=== PATIENT | male | born 1955 | race Caucasian/White ===

== ENCOUNTER 2018-11-29 12:23 | Outpatient (REF) | payer MEDICARE, SELFPAY ==
[2018-11-29 19:29] LABS: ALT 29 U/L (12-78); AST 24 U/L (15-37); Albumin 3.7 g/dL (3.4-5.0); Alkaline Phosphatase 110 U/L (46-116); Anion Gap 10.1 mmol/L (3-11); BUN 12 mg/dL (7-18); Bilirubin, Total 0.5 mg/dL (0.2-1.0); CO2 27.9 mmol/L (21.0-32.0); CREATININE 0.77 mg/dL (0.70-1.30); Calcium 9.2 mg/dL (8.5-10.1); Calculated LDL 89 mg/dL; Chloride 103 mmol/L (98-107); Cholesterol 152 mg/dL (50-200); Glucose 96 mg/dL (70-100); HDL Cholesterol 39 mg/dL (40-60); Potassium 4.6 mmol/L (3.5-5.1); Sodium 141 mmol/L (136-145); Total Protein 7.2 g/dL (6.4-8.2); Triglyceride 122 mg/dL (30-150)
== END 2018-11-29 12:43 ==
LOC: NCHCN 12:23
PROVIDERS: PCP Nurse Practitioner; Visit Provider Nurse Practitioner
DX: I10 Essential (primary) hypertension (principal); E78.5 Hyperlipidemia, unspecified
CPT/HCPCS: 80053; 80061; 83721

== ENCOUNTER 2019-05-31 11:16 | Outpatient (REF) | payer MEDICARE, SELFPAY ==
[2019-05-31 19:07] LABS: ALT 30 U/L (16-63); AST 23 U/L (15-37); Alkaline Phosphatase 115 U/L (46-116); Anion Gap 8.2 mmol/L (3-11); BUN 12 mg/dL (7-18); Bilirubin, Total 0.3 mg/dL (0.2-1.0); CO2 29.8 mmol/L (21.0-32.0); CREATININE 0.87 mg/dL (0.70-1.30); Chloride 103 mmol/L (98-107); Glucose 113 mg/dL (74-106); Potassium 4.8 mmol/L (3.5-5.1); Sodium 141 mmol/L (136-145); Total Protein 7.9 g/dL (6.4-8.2)
== END 2019-05-31 11:36 ==
LOC: NCHCN 11:16
PROVIDERS: PCP Nurse Practitioner; Visit Provider Nurse Practitioner
DX: I10 Essential (primary) hypertension (principal)
CPT/HCPCS: 80053

== ENCOUNTER 2020-06-06 19:14 | Outpatient (REF) | payer MEDICARE, SELFPAY ==
[2020-06-06 19:39] LABS: ALT 38 U/L (16-63); AST 24 U/L (15-37); Albumin 3.8 g/dL (3.4-5.0); Alkaline Phosphatase 108 U/L (46-116); Anion Gap 11.4 mmol/L (3-11); BUN 15 mg/dL (7-18); Bilirubin, Total 0.4 mg/dL (0.2-1.0); CO2 28.6 mmol/L (21.0-32.0); Calcium 9.8 mg/dL (8.5-10.1); Calculated LDL 100 mg/dL (<100); Chloride 101 mmol/L (98-107); Cholesterol 172 mg/dL (<200); Glucose 113 mg/dL (74-106); HDL Cholesterol 49 mg/dL (40-60); Potassium 4.3 mmol/L (3.5-5.1); Sodium 141 mmol/L (136-145); Total Protein 7.8 g/dL (6.4-8.2); Triglyceride 118 mg/dL (<150)
== END 2020-06-06 19:15 | disposition home or self-care (01) ==
LOC: NCHCN 19:14
PROVIDERS: PCP Nurse Practitioner; Visit Provider Nurse Practitioner
DX: I10 Essential (primary) hypertension (principal); E55.9 Vitamin D deficiency, unspecified; E78.5 Hyperlipidemia, unspecified
CPT/HCPCS: 80053; 80061; 82306; 84443

== ENCOUNTER 2020-10-08 17:31 | Outpatient (REF) | payer MEDICARE, SELFPAY ==
[2020-10-08 18:47] LABS: Abs Immature Grans 0.04 10^3/uL (0.0-0.06); Absolute Basophil Count 0.03 10^3/uL (0.0-0.2); Absolute Eosinophil Count 0.32 10^3/uL (0.0-0.7); Absolute Lymphocyte Count 1.25 10^3/uL (1.2-3.4); Absolute Monocyte Count 1.03 10^3/uL (0.1-0.8); Absolute Neutrophil Count 8.07 10^3/uL (1.2-6.7); Basophils % 0.3; HCT 48.3 % (40.0-50.0); HGB 15.4 g/dL (13.5-17.5); Immature Grans % 0.4; Lymphocytes % 11.6; MCH 29.6 pg (27.0-33.0); MCHC 31.9 % (32.0-36.0); MCV 92.9 fL (80-95); MPV 10.9 fL (8.0-11.0); Monocytes % 9.6; Neutrophils % 75.1; Nucleated RBC 0 %; Platelet Count 244 10^3/uL (130-400); RDW 13.8 % (11.8-14.1); RDW-SD 47.1 fL; WBC 10.74 10^3/uL (4.4-10.8)
[2020-10-08 18:53] LABS: ESR 49 mm/hr (0-20)
== END 2020-10-08 17:32 | disposition home or self-care (01) ==
LOC: NCHCN 17:31
PROVIDERS: PCP Nurse Practitioner; Visit Provider Nurse Practitioner
DX: R21 Rash and other nonspecific skin eruption (principal)
CPT/HCPCS: 85652; 85025

== ENCOUNTER 2021-07-15 12:22 | Outpatient (REF) | payer MEDICARE, SELFPAY ==
[2021-07-15 18:36] LABS: HCT 47.9 % (40.0-50.0); HGB 15.1 g/dL (13.5-17.5); MCH 29.1 pg (27.0-33.0); MCHC 31.5 % (32.0-36.0); MCV 92.3 fL (80-95); MPV 10.3 fL (8.0-11.0); Platelet Count 270 10^3/uL (130-400); RBC 5.19 10^6/uL (4.36-5.78); RDW 13.8 % (11.8-14.1); RDW-SD 46.5 fL; WBC 8.92 10^3/uL (4.4-10.8)
[2021-07-15 18:44] LABS: ALT 21 U/L (16-63); AST 20 U/L (15-37); Albumin 3.5 g/dL (3.4-5.0); Alkaline Phosphatase 103 U/L (46-116); Anion Gap 7.3 mmol/L (3-11); BUN 19 mg/dL (7-18); Bilirubin, Total 0.3 mg/dL (0.2-1.0); CO2 28.7 mmol/L (21.0-32.0); CREATININE 0.9 mg/dL (0.70-1.30); Chloride 104 mmol/L (98-107); Glucose 94 mg/dL (74-106); Potassium 4.7 mmol/L (3.5-5.1); Sodium 140 mmol/L (136-145); Total Protein 7.4 g/dL (6.4-8.2)
== END 2021-07-15 12:23 | disposition home or self-care (01) ==
LOC: NCHCN 12:22
PROVIDERS: PCP Nurse Practitioner; Visit Provider Nurse Practitioner Family
DX: R73.03 Prediabetes (principal); I10 Essential (primary) hypertension; I73.9 Peripheral vascular disease, unspecified; N40.0 Benign prostatic hyperplasia without lower urinary tract symptoms
CPT/HCPCS: 80053; 85027; 83036

== ENCOUNTER 2022-07-21 13:35 | Outpatient (REF) | payer MEDICARE, SELFPAY ==
[2022-07-21 15:29] LABS: Abs Immature Grans 0.06 10^3/uL (0.0-0.06); Absolute Basophil Count 0.05 10^3/uL (0.0-0.2); Absolute Eosinophil Count 0.25 10^3/uL (0.0-0.7); Absolute Lymphocyte Count 0.99 10^3/uL (1.2-3.4); Absolute Monocyte Count 0.74 10^3/uL (0.1-0.8); Absolute Neutrophil Count 7.61 10^3/uL (1.2-6.7); Basophils % 0.5; Eosinophils % 2.6; HCT 49.5 % (40.0-50.0); HGB 16.1 g/dL (13.5-17.5); Immature Grans % 0.6; Lymphocytes % 10.2; MCH 30.2 pg (27.0-33.0); MCHC 32.5 % (32.0-36.0); MCV 93 fL (80-95); MPV 10.9 fL (8.0-11.0); Monocytes % 7.6; Neutrophils % 78.5; Platelet Count 245 10^3/uL (130-400); RBC 5.33 10^6/uL (4.36-5.78); RDW 13.8 % (11.8-14.1); RDW-SD 46.9 fL
[2022-07-21 15:51] LABS: ALT 26 U/L (16-63); AST 22 U/L (15-37); Albumin 3.4 g/dL (3.4-5.0); Alkaline Phosphatase 105 U/L (46-116); Anion Gap 7.7 mmol/L (3-11); BUN 18 mg/dL (7-18); CO2 29.3 mmol/L (21.0-32.0); CREATININE 0.9 mg/dL (0.70-1.30); Calcium 9.4 mg/dL (8.5-10.1); Calculated LDL 72 mg/dL (<100); Chloride 101 mmol/L (98-107); Cholesterol 132 mg/dL (<200); Estimated GFR 93.61 (mL/min/1.73m2); Glucose 114 mg/dL (74-106); HDL Cholesterol 50 mg/dL (40-60); Potassium 4.9 mmol/L (3.5-5.1); Sodium 138 mmol/L (136-145); Total Protein 8.3 g/dL (6.4-8.2); Triglyceride 53 mg/dL (<150)
[2022-07-21 16:04] LABS: Hemoglobin A1C 6.1 % (<5.7)
[2022-07-21 18:56] LABS: Bilirubin, Total 0.3 mg/dL (0.2-1.0)
[2022-07-21 22:26] LABS: PSA, Screening 1.6 ng/mL (<=4.5)
== END 2022-07-21 13:36 | disposition home or self-care (01) ==
LOC: NCHCN 13:35
PROVIDERS: PCP Nurse Practitioner Family; Visit Provider Nurse Practitioner Family
DX: I10 Essential (primary) hypertension (principal); R73.03 Prediabetes; R60.0 Localized edema; E78.5 Hyperlipidemia, unspecified; Z12.5 Encounter for screening for malignant neoplasm of prostate; G47.33 Obstructive sleep apnea (adult) (pediatric); N40.0 Benign prostatic hyperplasia without lower urinary tract symptoms
CPT/HCPCS: 80053; 80061; 84153; 83036; 85025

== ENCOUNTER 2022-08-18 19:06 | Outpatient (REF) | payer MEDICARE, SELFPAY ==
[2022-08-18 19:26] LABS: Abs Immature Grans 0.04 10^3/uL (0.0-0.06); Absolute Basophil Count 0.04 10^3/uL (0.0-0.2); Absolute Eosinophil Count 0.37 10^3/uL (0.0-0.7); Absolute Lymphocyte Count 1.14 10^3/uL (1.2-3.4); Absolute Monocyte Count 0.67 10^3/uL (0.1-0.8); Absolute Neutrophil Count 6.79 10^3/uL (1.2-6.7); Basophils % 0.4; Eosinophils % 4.1; HCT 49.2 % (40.0-50.0); HGB 15.5 g/dL (13.5-17.5); Immature Grans % 0.4; Lymphocytes % 12.6; MCH 30.3 pg (27.0-33.0); MCHC 31.5 % (32.0-36.0); MCV 96 fL (80-95); MPV 10.9 fL (8.0-11.0); Monocytes % 7.4; Neutrophils % 75.1; Platelet Count 228 10^3/uL (130-400); RBC 5.12 10^6/uL (4.36-5.78); RDW 13.7 % (11.8-14.1); RDW-SD 48.9 fL; WBC 9.05 10^3/uL (4.4-10.8)
[2022-08-18 20:12] LABS: ALT 34 U/L (16-63); AST 21 U/L (15-37); Albumin 3.4 g/dL (3.4-5.0); Alkaline Phosphatase 111 U/L (46-116); Anion Gap 3.8 mmol/L (3-11); BUN 16 mg/dL (7-18); Bilirubin, Total 0.2 mg/dL (0.2-1.0); CO2 32.2 mmol/L (21.0-32.0); Calcium 8.7 mg/dL (8.5-10.1); Chloride 107 mmol/L (98-107); Estimated GFR 82.49 (mL/min/1.73m2); Glucose 188 mg/dL (74-106); NT-proBNP 40 pg/mL (<300); Potassium 4.6 mmol/L (3.5-5.1); Sodium 143 mmol/L (136-145); Total Protein 7.6 g/dL (6.4-8.2)
== END 2022-08-18 19:07 | disposition home or self-care (01) ==
LOC: NCHCN 19:06
PROVIDERS: PCP Nurse Practitioner Family; Visit Provider Nurse Practitioner Family
DX: R06.09 Other forms of dyspnea (principal); R60.0 Localized edema; L97.421 Non-pressure chronic ulcer of left heel and midfoot limited to breakdown of skin; Z87.898 Personal history of other specified conditions; E11.621 Type 2 diabetes mellitus with foot ulcer; I10 Essential (primary) hypertension
CPT/HCPCS: 80053; 83880; 85025

== ENCOUNTER 2023-02-20 06:19 | Emergency (ER) | payer MEDICARE, SELFPAY ==
[2023-02-20] VITALS (24 sets, daily range): BP systolic 89–142; BP diastolic 26–72; PULSE 88–118; RESP 20–37; TEMP 37; O2SAT 86–96
--- NOTE | 2023-02-20 06:40 | W.ED.GENAD ---
Discharge Plan Disposition Patient Disposition: Home Condition: Good Discharge Details Chief Complaint: Laceration Clinical Impression: Blood loss, Laceration of right lower leg Primary Care Provider: JOSE FRANCISCO ARCE ED Provider: Malcom Huitron Home Meds and New Rx's Prescriptions: No Action olmesartan [Benicar] 20 mg tablet 20 mg PO DAILY omeprazole 20 mg capsule,delayed release(DR/EC) 20 mg PO DAILY finasteride 5 mg tablet 5 mg PO DAILY furosemide 40 mg tablet 40 mg PO DAILY amitriptyline 25 mg tablet 25 mg PO DAILY aspirin 81 mg tablet,chewable 81 mg PO DAILY tamsulosin 0.4 mg capsule 0.4 mg PO DAILY atorvastatin 20 mg tablet 20 mg PO DAILY vitamin E mixed 1,000 unit capsule PO acetaminophen 500 mg capsule 500 mg PO Q6H PRN cholecalciferol (vitamin D3) 75 mcg (3,000 unit) tablet 75 mcg PO DAILY ciprofloxacin HCl [Cipro] 500 mg tablet 500 mg PO BID Qty: 28 0RF Discharge Instructions Instructions: Laceration (ED) Additional Instructions: At this time your lacerations were superficial. We are able to cover them with mild glue. Your blood loss thankfully did not amount to a significant volume to decrease your hemoglobin levels. We have rehydrated you. Please drink plenty of fluids and stay well-hydrated over the next few days. Follow-up closely with home health. If you notice any worsening of your symptoms, or any new symptoms such as vomiting, diarrhea, fever, chills, shortness of breath, chest pain, numbness, weakness, or fainting , please return immediately to the emergency department for reevaluation. Please follow up with your primary care provider as soon as possible for reassessment and reevaluation. As always, it was a pleasure participating in your medical care today. Referrals: JOSE FRANCISCO ARCE, [employer] OPERATOR [Primary Care Provider] - Medical Decision Making 67-year-old male with a past medical history of peripheral artery disease, neuropathy, congestive heart failure in the past, high cholesterol, previous toe amputations, who currently has a healing ulcer being managed by podiatry who comes in today via EMS for notable bleeding. Patient had an Unna boot that was placed on his right foot, he was supposed to have it changed by home health today. He began cutting it away this morning and unfortunately the scissors slipped and stabbed into his calf as he was cutting it. He had notable amount of bleeding, EMS was called, he did have an episode of lightheadedness and near syncope which she states is secondary to the site of blood which causes him to get a queasy stomach. When EMS arrived he was tachycardic and hypotensive. He did not hit his head. No other trauma. The leg was bandaged by fire, and the patient was brought in for further assessment. Patient denies any new numbness tingling or weakness otherwise. No other complaints. He states he feels much better at this time. After removal of a notably large amount of bloody gauze and his bloodied Unna boot cast, we were able to find the initial source which appears to be 2 small superficial 1 cm abrasions/lacerations on the medial aspect of his right calf. No active bleeding at all at this time. Pulses otherwise intact. I suspect that the patient superficially stabbed the area twice which had notable chronic vascular congestion and led to a significant amount of oozing and bleeding. Bleeding is now stopped. I am concerned as to the potential amount of loss of blood given the pictures that were shown to me by the EMS crew. We will type and screen, gently rehydrate, check his hemoglobin levels, monitor closely and reassess. Tetanus was updated 1 year ago. Lacerations are notably superficial and do not show an indication for suturing at this time. No evidence of foreign body. 7:32 AM Laboratory work-up demonstrates a stable hemoglobin at 16.5, platelets are normal. Electrolytes normal. Patient's heart rate has normalized, blood pressure is normalized. Patient has no complaints whatsoever. With a stable hemoglobin, normalize blood pressure, normalized heart rate, no indication for blood products at this time. I do feel that the patient is stable for discharge currently. We will rebandage his legs, connect with home health, and discharge. I have extensively reviewed the treatment plan and discharge instructions with the patient. I have addressed all patient concerns at this time. The patient was made aware of what symptoms to monitor for that would warrant a return to the emergency department. Discussed the plan with the patient, they demonstrate verbal understanding and agreement with our assessment and plan at this time. The documentation in this chart was dictated using [employer] dictation software. Please excuse any dictation errors. We did reach out to home health. We discussed the current situation. They recommend doing temporary dry bandaging and then they will place the more complicated bandaging on the patient once he gets home. HPI General Date/Time Provider Initiated Documentation: 02/20/23 06:33. HPI Narrative: 67-year-old male with a past medical history of peripheral artery disease, neuropathy, congestive heart failure in the past, high cholesterol, previous toe amputations, who currently has a healing ulcer being managed by podiatry who comes in today via EMS for notable bleeding. Patient had an Unna boot that was placed on his right foot, he was supposed to have it changed by home health today. He began cutting it away this morning and unfortunately the scissors slipped and stabbed into his calf as he was cutting it. He had notable amount of bleeding, EMS was called, he did have an episode of lightheadedness and near syncope which she states is secondary to the site of blood which causes him to get a queasy stomach. When EMS arrived he was tachycardic and hypotensive. He did not hit his head. No other trauma. The leg was bandaged by fire, and the patient was brought in for further assessment. Patient denies any new numbness tingling or weakness otherwise. No other complaints. He states he feels much better at this time. Related Data Home Medications Medication Instructions Recorded Confirmed acetaminophen 500 mg capsule 500 mg PO Q6H PRN 01/16/22 02/20/23 amitriptyline 25 mg tablet 25 mg PO DAILY 01/16/22 02/20/23 aspirin 81 mg chewable tablet 81 mg PO DAILY 01/16/22 02/20/23 atorvastatin 20 mg tablet 20 mg PO DAILY 01/16/22 02/20/23 finasteride 5 mg tablet 5 mg PO DAILY 01/16/22 02/20/23 furosemide 40 mg tablet 40 mg PO DAILY 01/16/22 02/20/23 olmesartan 20 mg tablet (Benicar) 20 mg PO DAILY 01/16/22 02/20/23 omeprazole 20 mg capsule,delayed 20 mg PO DAILY 01/16/22 02/20/23 release tamsulosin 0.4 mg capsule 0.4 mg PO DAILY 01/16/22 02/20/23 vitamin E mixed 1,000 unit capsule unit PO 01/16/22 02/12/23 cholecalciferol (vitamin D3) 75 75 mcg PO DAILY 02/09/23 02/20/23 mcg (3,000 unit) tablet ciprofloxacin HCl 500 mg tablet 500 mg PO BID #28 tabs 02/12/23 02/20/23 (Cipro) Previous Rx's Medication Instructions Recorded ciprofloxacin HCl 500 mg tablet 500 mg PO BID #28 tabs 02/12/23 (Cipro) Allergies Allergy/AdvReac Type Severity Reaction Status Date / Time diethylstilbestrol Allergy Verified 02/20/23 06:35 Penicillins Allergy Diarrhea Verified 02/20/23 06:35 milk AdvReac Intermediate Diarrhea Verified 02/20/23 06:35 lobster AdvReac Mild Uncoded 02/20/23 06:35 General Stated Complaint: Laceration ITZEL: 2 Review of Systems All systems reviewed & are unremarkable except as noted in HPI and below PFSH All Active Problems (Updated 02/20/23 @ 07:34 by Malcom Huitron DO) Laceration of right lower leg (Acute) Blood loss (Acute) Cellulitis (Acute) Non-compliant patient (Acute) Ulcer of left foot with fat layer exposed (Acute) Lymphedema (Acute) Venous insufficiency of both lower extremities (Acute) Atherosclerosis of [place] arteries of right leg with ulceration of unspecified site (Acute) Atherosclerosis of [place] arteries of left leg with ulceration of other part of foot (Acute) Callus of foot (Acute) Localized edema (Acute) Neuropathy (Acute) Ulcer of other part of foot (Acute) Corns and callosities (Acute) Nail dystrophy (Acute) Glaucoma (Chronic) BPH (benign prostatic hyperplasia) (Chronic) TANI (obstructive sleep apnea) (Chronic) Hyperlipidemia (Acute) Peripheral artery disease (Acute) Peripheral neuropathy (Acute) Hypertension (Chronic) Medical History Frostbite bi-lat feet, related to exposure at work ([id number]) Congestive heart failure (CHF) Amputated toe of right foot 1st toe 03/2009 Amputated toe of left foot 1st toe 2007 Social History Smoking/Tobacco Use Status: Never Tobacco: How many years used: 25 Smoking risk assessment performed?: Yes Alcohol Intake: never Drug use: Never Substance use type: does not use Housing: apartment Do you feel safe at home: Yes Do you feel safe in your relationship?: Yes Exam Narrative Exam Narrative: 1.Const: Well-nourished, Well-developed, appearing stated age 2.Eyes: PERRL, no conjunctival injection, and symmetrical lids. 3.ENT: Atraumatic external nose and ears. Moist MM. Neck: Symmetric, trachea midline, No thyromegaly. 4.CVS: +S1/S2, No murmurs or gallops. Peripheral pulses 2+ and equal in all extremities. Brisk capillary refill in all extremities. 5.RESP: Unlabored respiratory effort. Clear to auscultation bilaterally. No wheezes rales or rhonchi 6.GI: Soft, Nontender/Nondistended, No hepatosplenomegaly. No guarding or rebound. 7.MSK: Normocephalic. Patient's extremities demonstrate evidence of amputated toes in the past. Ulcers appear to be well-healing. Notable amount of dried blood all over the foot. After all bandaging was removed there appears to be 2 small superficial cuts each about 1 cm in length on the medial aspect of the patient's calf. No active bleeding at this time. 8.Skin: Warm, Dry. 2 small superficial 1 cm cuts appear to be present on the medial aspect of the patient's right calf. No active bleeding. 9.Neuro: drawer in dobby loom II-XII grossly intact. Sensation grossly intact, no focal neurologic deficits. 10.Psych: (AAO) x3. Appropriate mood and affect Course Vital Signs Vital signs: Vital Signs Temperature 37 C 02/20/23 06:28 Pulse 118 H 02/20/23 06:28 Respiratory Rate 22 02/20/23 06:28 Blood Pressure 142/51 H 02/20/23 06:28 Pulse Oximetry 96 02/20/23 06:28 Temperature 37 C 02/20/23 06:28 Temperature Source Temporal Artery Scan 02/20/23 06:28 Pulse 118 H 02/20/23 06:28 Respiratory Rate 22 02/20/23 06:28 Respiratory Effort Normal 02/20/23 06:28 Blood Pressure 142/51 H 02/20/23 06:28 Blood Pressure Position Supine 02/20/23 06:28 Pulse Oximetry 96 02/20/23 06:28 Oxygen Delivery Method Room Air 02/20/23 06:28 Oxygen Flow Rate 0 02/20/23 06:28 Pain Level 2 02/20/23 06:36
[2023-02-20 06:47] LABS: Abs Immature Grans 0.06 10^3/uL (0.0-0.06); Absolute Basophil Count 0.05 10^3/uL (0.0-0.2); Absolute Eosinophil Count 0.21 10^3/uL (0.0-0.7); Absolute Lymphocyte Count 0.98 10^3/uL (1.2-3.4); Absolute Monocyte Count 0.88 10^3/uL (0.1-0.8); Basophils % 0.4; Eosinophils % 1.8; HCT 51.1 % (40.0-50.0); HGB 16.5 g/dL (13.5-17.5); Immature Grans % 0.5; Lymphocytes % 8.5; MCH 29.8 pg (27.0-33.0); MCHC 32.3 % (32.0-36.0); MCV 92 fL (80-95); MPV 10.1 fL (8.0-11.0); Monocytes % 7.6; Neutrophils % 81.2; Platelet Count 265 10^3/uL (130-400); RBC 5.54 10^6/uL (4.36-5.78); RDW 14.5 % (11.8-14.1); RDW-SD 49.5 fL; WBC 11.55 10^3/uL (4.4-10.8)
[2023-02-20 06:49] LABS: Absolute Neutrophil Count 9.38 10^3/uL (1.2-6.7)
[2023-02-20 06:58] LABS: Prothrombin Time 10.3 sec (9.1-11.1)
[2023-02-20] MEDS: Normal Saline 1,000 ML 1000 ML IV (07:04)
[2023-02-20 07:07] LABS: ALT 22 U/L (16-63); AST 15 U/L (15-37); Albumin 3.4 g/dL (3.4-5.0); Alkaline Phosphatase 87 U/L (46-116); Anion Gap 7.4 mmol/L (3-11); BUN 20 mg/dL (7-18); Bilirubin, Total 0.7 mg/dL (0.2-1.0); CO2 30.6 mmol/L (21.0-32.0); CREATININE 1.1 mg/dL (0.70-1.30); Calcium 9.3 mg/dL (8.5-10.1); Chloride 97 mmol/L (98-107); Estimated GFR 73.12 (mL/min/1.73m2); Glucose 163 mg/dL (74-106); Sodium 135 mmol/L (136-145); Total Protein 8.5 g/dL (6.4-8.2)
--- NOTE | 2023-02-20 08:13 | NUR.NOTE ---
Nursing Note: when evaluating patients leg, nurse noticed O2 sat dropping into the mid to upper 80s. LLL of lung crackles, informed provider, provider ordered to D/C fluids. Provider talked with patient about taking an extra Lasix tonight if SOB. patient denies SOB at this time, after sitting patient up straight O2 sat 90%. provider states he is okay with that.
== END 2023-02-20 08:27 | disposition home or self-care (01) ==
PROVIDERS: Emergency Provider Student in an Organized Health Care Education/Training Program; PCP Nurse Practitioner Family
DX: S81.811A Laceration without foreign body, right lower leg, initial encounter (principal); W26.8XXA Contact with other sharp object(s), not elsewhere classified, initial encounter; R58 Hemorrhage, not elsewhere classified
CPT/HCPCS: 80053; 86850; 86900; 86901; 96360; 99284; 85025; 85610; 85730

== ENCOUNTER → 2023-03-17 10:49 | Outpatient (BNVA) | payer MEDICARE, SELFPAY | PROVIDERS: PCP Nurse Practitioner Family; Referring Provider Nurse Practitioner Family; Visit Provider Podiatrist | DX: L97.522 Non-pressure chronic ulcer of other part of left foot with fat layer exposed (principal); I70.239 Atherosclerosis of native arteries of right leg with ulceration of unspecified site; G62.9 Polyneuropathy, unspecified; I87.2 Venous insufficiency (chronic) (peripheral); I89.0 Lymphedema, not elsewhere classified; Z91.199 Patient's noncompliance with other medical treatment and regimen due to unspecified reason | CPT/HCPCS: 11042; 29580; 99213; 29850 ==

== ENCOUNTER → 2023-05-06 11:06 | Outpatient (BNVA) | payer MEDICARE, SELFPAY | PROVIDERS: PCP Nurse Practitioner Family; Referring Provider Nurse Practitioner Family; Visit Provider Podiatrist | DX: G62.9 Polyneuropathy, unspecified (principal); I73.89 Other specified peripheral vascular diseases; I70.245 Atherosclerosis of native arteries of left leg with ulceration of other part of foot; R60.0 Localized edema; L97.522 Non-pressure chronic ulcer of other part of left foot with fat layer exposed; R09.89 Other specified symptoms and signs involving the circulatory and respiratory systems; Z89.412 Acquired absence of left great toe; Z89.411 Acquired absence of right great toe | CPT/HCPCS: 11042; 29580; 29850 ==

== ENCOUNTER → 2023-06-01 11:01 | Outpatient (BNVA) | payer MEDICARE, SELFPAY | PROVIDERS: PCP Nurse Practitioner Family; Referring Provider Nurse Practitioner Family; Visit Provider Podiatrist | DX: L97.522 Non-pressure chronic ulcer of other part of left foot with fat layer exposed; I70.239 Atherosclerosis of native arteries of right leg with ulceration of unspecified site; G62.9 Polyneuropathy, unspecified; I87.2 Venous insufficiency (chronic) (peripheral); I89.0 Lymphedema, not elsewhere classified; Z91.199 Patient's noncompliance with other medical treatment and regimen due to unspecified reason; L03.116 Cellulitis of left lower limb | CPT/HCPCS: 11042; 97597 ==

== ENCOUNTER 2023-06-01 13:35 | Outpatient (REF) | payer MEDICARE, SELFPAY | END 2023-06-01 13:36 | disposition home or self-care (01) | LOC: LBN 13:35 | PROVIDERS: PCP Nurse Practitioner Family; Visit Provider Podiatrist | DX: L97.522 Non-pressure chronic ulcer of other part of left foot with fat layer exposed (principal) | CPT/HCPCS: 87077; 87070; 87075; 87205 ==

== ENCOUNTER 2023-06-12 18:31 | Inpatient (IN) | payer MEDICARE, SELFPAY ==
[2023-06-12] VITALS (52 sets, daily range): BP systolic 83–117; BP diastolic 26–59; PULSE 79–117; RESP 15–41; TEMP 36.3–37.3; O2SAT 78–97
--- NOTE | 2023-06-12 18:42 | ED.GENADUL_ITS ---
HPI <GEE Samson - Last Filed: 06/12/23 22:26> General Date/Time Provider Initiated Documentation: 06/12/23 18:39 . HPI Narrative: 67 year-old male presents to ED today by EMS with a chief complaint of possible fall at [facility] where he lives- he denies fall, states he merely laid down on the floor because he was listening to music and his TV doesn't work- question patients' reliability, with onset just prior to arrival. Patient is being treated for chronic foot ulcers by Podiatry, but has a new rash to his R armpit that is starkly red- EMS was on scene for a lift assist and noticed unstable vitals. Quality described as no pain anywhere, no radiation to chest pain, shortness of breath, fever, nausea/vomiting. Severity is described as unable to quantify. Palliating factors include nothing specific. Provoking factors include nothing specific. Patient not anticoagulated. Related Data Home Medications Medication Instructions Recorded Confirmed acetaminophen 500 mg capsule 500 mg PO Q6H PRN 01/16/22 06/01/23 amitriptyline 25 mg tablet 25 mg PO DAILY 01/16/22 06/01/23 aspirin 81 mg chewable tablet 81 mg PO DAILY 01/16/22 06/01/23 atorvastatin 20 mg tablet 20 mg PO DAILY 01/16/22 06/01/23 finasteride 5 mg tablet 5 mg PO DAILY 01/16/22 06/01/23 furosemide 40 mg tablet 40 mg PO DAILY 01/16/22 06/01/23 olmesartan 20 mg tablet (Benicar) 20 mg PO DAILY 01/16/22 06/01/23 omeprazole 20 mg capsule,delayed 20 mg PO DAILY 01/16/22 06/01/23 release tamsulosin 0.4 mg capsule 0.4 mg PO DAILY 01/16/22 06/01/23 vitamin E mixed 1,000 unit capsule unit PO 01/16/22 06/01/23 cholecalciferol (vitamin D3) 75 75 mcg PO DAILY 02/09/23 06/01/23 mcg (3,000 unit) tablet ciprofloxacin HCl 500 mg tablet 500 mg PO BID #28 tabs 03/17/23 06/01/23 (Cipro) clindamycin HCl 300 mg capsule 300 mg PO TID 10 days #30 caps 06/04/23 Previous Rx's Medication Instructions Recorded ciprofloxacin HCl 500 mg tablet 500 mg PO BID #28 tabs 03/17/23 (Cipro) clindamycin HCl 300 mg capsule 300 mg PO TID 10 days #30 caps 06/04/23 Allergies Allergy/AdvReac Type Severity Reaction Status Date / Time diethylstilbestrol Allergy Unknown Other (See Verified 06/12/23 18:40 Comment) Penicillins Allergy Diarrhea Verified 06/12/23 18:40 milk AdvReac Intermediate Diarrhea Verified 06/12/23 18:40 lobster AdvReac Mild Anaphylaxis Uncoded 06/12/23 18:40 General Stated Complaint: Cellulitis ITZEL: 2 Review of Systems <GEE Samson - Last Filed: 06/12/23 22:26> All systems reviewed & are unremarkable except as noted in HPI and below Exam <GEE Samson - Last Filed: 06/12/23 22:26> Narrative Exam Narrative: GENERAL APPEARANCE: Obese, toxic, alert to vocal responses, atraumatic, moderate acute distress. SKIN: Starkly erythematous rash to the patient's right armpit without visible purulent drainage or large fluctuant swelling, scant maculopapular rash spreading out from this area across the torso mostly in the pectoralis, diffuse Velma to groin, chronic foot ulcerations bilaterally with multiple toe amputations HEAD: Normocephalic, atraumatic, normal hair distribution for gender/age. EYES: Pupils PERRLA, EOMs intact without nystagmus, normal conjunctiva, no exudates on lids/lashes, allergic conjunctivitis. ENT: Nares patent, no circumoral cyanosis, no facial swelling NECK: Supple, trachea midline, painless cervical ROM. LUNGS/CHEST: Lungs CTA bilaterally- no rales at bases, labored respirations with hypoxia on RA noted on arrival at 79%, placed on 3L by NC O2, normal A/P diameter, symmetrical expansion, no chest wall deformity HEART (CV/PV): Regular rate and rhythm without murmur, 1+ peripheral edema, no JVD. ABDOMEN: Obese, soft, non-distended, no guarding, no tenderness. MSK: Normal ROM, no swelling/deformity to bilateral UEs or LEs, moving all extremities without weakness, no cyanosis, spine midline without tenderness, normal curvature. NEURO: Mental Status AAOx4 - alert to person, place, time, events No facial droop, no forehead involvement. Motor: No focal weakness - strength 5/5 in bilateral UEs and LEs, proximal and distal, symmetric. Sensory: sensation intact to light touch globally. Gait NT. PSYCH: euthymic, cooperative, pleasant, appropriate speech Course <GEE Samson - Last Filed: 06/12/23 22:26> Vital Signs Vital signs: Vital Signs Temperature 37.3 C 06/12/23 18:30 Pulse 117 H 06/12/23 18:30 Respiratory Rate 41 H 06/12/23 18:30 Blood Pressure 92/36 L 06/12/23 18:30 Pulse Oximetry 79 L 06/12/23 18:30 Temperature 37.3 C 06/12/23 18:30 Temperature Source Oral 06/12/23 18:30 Pulse 117 H 06/12/23 18:30 Respiratory Rate 41 H 06/12/23 18:30 Blood Pressure 92/36 L 06/12/23 18:30 Blood Pressure Position Sitting 06/12/23 18:30 Pulse Oximetry 79 L 06/12/23 18:30 Oxygen Delivery Method Room Air 06/12/23 18:30 Oxygen Flow Rate 0 06/12/23 18:30 Pain Level 7 06/12/23 18:30 Lab/Test Results Lab/Test Results: 06/12/23 18:40 Blood Blood Culture - Pending Medical Decision Making <GEE Samson - Last Filed: 06/12/23 22:26> This dictation utilizes [id number] dictation software and may contain unedited grammatical errors. 67 y/o ill-appearing M presents to ED today with a chief complaint of possible fall at [facility]- states he feels fine, but his vitals are septic on arrival with hypotension. Patient has a known chronic foot ulcer, but has new rash to R armpit. Patients' medical history: Lymphedema, chronic foot ulcers with multiple toe amputations, neuropathy, hyperlipidemia, peripheral artery disease, peripheral neuropathy, hypertension. Family and social history: Lives at [facility] DNR/DNI. Pertinent exam findings / vital signs include intially hypoxic to 79% RA with good pleth on arrival, hypotensive 80s/50s MAP of 58- improved with IVF after 2 large bore IV's established, starkly erythematous rash to R armpit, chronic foot ulcerations do not appear to be source of infection, benign abdomen. Differential / pathologies of concern include sepsis, d-dimer, PNA, cellulitis, altered mentation. Diagnostic studies of: -CBC, CMP, lactate, ESR/CRP, VBG, BNP, urinalysis, troponin, creatine kinase, magnesium, procalcitonin, ammonia, UA, CTA chest. -CBC shows a leukocytosis of 13 -ESR 50 -D-dimer 2500, hypoxic on arrival ordering CTA -No ALEJANDRO, mildly elevated creatinine -Elevated CK at 988 -CRP 6.1 -Procalcitonin negative -Lactate 1.3 -CTA Chest PE study - no PE, questions PNA vs motion artifact Interventions of: -2 large-bore IV's, giving 2L of fluid- no noted history of CHF- BP improved quickly to 110s/50, no need for pressors at this time. -IV cefepime & vancomycin ED Course/Assessment/Plan: Patient presents from [facility] by EMS after they presented for lift assist and noticed abnormal vitals, patient is hypoxic to 79 on arrival was placed on 3 L nasal cannula and quickly became hypotensive, this improved with 2 large-bore IVs and IV fluids without vasopressors. The patient has a severe cellulitis to the right armpit and elevated leukocytes, he did have significant elevated D- dimer and the CTA study shows no PE, the patient is unsafe for discharge and has sepsis secondary to cellulitis, he has received IV cefepime and vancomycin and blood cultures. PE Study does question PNA vs atelectasis, covered with ABX. Patient accepted for admission by Hospitalist Dr. Cr. Disposition of Sepsis, Hypoxic Respiratory Failure, Cellulitis. Patient verbalized understanding of the plan and return to ED criteria and engaged in shared decision making. Medical Records Medical records reviewed: Yes I reviewed the patient's medical records. Imaging Data Radiologic Study: Attestation: I personally reviewed and interpreted this imaging study as follows: Imaging: CT Scan Radiologist's impression: Exam: CTA Chest With Contrast Exam date and time: 06/12/2023 9:08 PM Age: 67 years old Clinical indication: Other: Elevated d dimer, hypoxia; Additional info: Patient could not lift arms above head. Best images possible. TECHNIQUE: Imaging protocol: Computed tomographic angiography of the chest with contrast. Exam focused on the arteries. 3D rendering (Not supervised by radiologist): MIP and/or 3D reconstructed images were created by the technologist. Radiation optimization: All CT scans at this facility use at least one of these dose optimization techniques: automated exposure control; mA and/or kV adjustment per patient size (includes targeted exams where dose is matched to clinical indication); or iterative reconstruction. Contrast material: [id number]; Contrast volume: 100 ml; Contrast route: INTRAVENOUS (IV); COMPARISON: No relevant prior studies available. FINDINGS: Pulmonary arteries: No major segmental pulmonary artery emboli; motion artifact distally. Aorta: No aortic aneurysm. No aortic dissection. Lungs: Patchy mild bibasilar opacities favoring subsegmental atelectasis over pneumonia. Slightly more rounded 17 mm right upper lobe ground-glass lesion, potential more rounded component of about 2 cm in the right lower lobe. Both are very challenging to assess due to motion. Consider follow-up with better motion control when clinically appropriate to assess the nature of these lesions. Pleural spaces: No pneumothorax. No pleural effusion. Heart: Mild cardiomegaly. Lymph nodes: No enlarged lymph nodes. Diaphragm: Elevated right hemidiaphragm. Bones/joints: No acute fracture or listhesis allowing for motion. Soft tissues: No suspicious lesions. Other findings: Motion artifact. IMPRESSION: 1. No major segmental pulmonary artery emboli; motion artifact distally. 2. Patchy mild bibasilar opacities favoring subsegmental atelectasis over pneumonia. 3. Additional incidental findings as above. Dictated and Authenticated by: Danyelle Barrett MD. Lab Data Lab results reviewed: Yes I reviewed the patient's lab results. Labs: 06/12/23 19:37 Urine - Reflex from Ua Urine Culture - Pending 06/12/23 19:15 Blood Blood Culture - Pending 06/12/23 18:58 Blood Blood Culture - Pending Laboratory Tests Range/Units 06/12/23 06/12/23 06/12/23 18:48 18:58 19:37 WBC (4.4-10.8) 10^3/uL 13.08 H RBC (4.36-5.78) 10^6/uL 5.20 Hgb (13.5-17.5) g/dL 14.9 Hct (40.0-50.0) % 46.7 MCV (80-95) fL 90 MCH (27.0-33.0) pg 28.7 MCHC (32.0-36.0) % 31.9 L RDW (11.8-14.1) % 15.0 H Plt Count (130-400) 10^3/uL 267 MPV (8.0-11.0) fL 9.8 Immature Gran % 0.3 Neutrophils % 86.1 Lymphocytes % 5.7 Monocytes % 7.1 Eosinophils % 0.5 Basophils % 0.3 Nucleated RBC % (0.0-0.3) % 0.0 Absolute Neutrophils (1.2-6.7) 10^3/uL 11.26 H Absolute Lymphocytes (1.2-3.4) 10^3/uL 0.75 L Absolute Monocytes (0.1-0.8) 10^3/uL 0.93 H Absolute Eosinophils (0.0-0.7) 10^3/uL 0.07 Absolute Basophils (0.0-0.2) 10^3/uL 0.04 ESR (0-20) mm/hr 50 H D-Dimer (<500) ng/mlFEU 2545 H VBG pH (7.31-7.41) 7.32 VBG pCO2 (41-51) mmHg 56 H VBG pO2 mmHg 50 VBG HCO3 (23-28) mmol/L 29 H VBG Total CO2 (24-29) mmol/L 26 VBG O2 Saturation % 80 VBG Base Excess (-2-3) mmol/L 3 VBG Lactate (0.6-1.4) mmol/L 1.3 Sodium (136-145) mmol/L 142 Potassium (3.5-5.1) mmol/L 4.6 Chloride (98-107) mmol/L 104 Carbon Dioxide (21.0-32.0) mmol/L 28.7 Anion Gap (3-11) mmol/L 9.3 BUN (7-18) mg/dL 33 H Creatinine (0.70-1.30) mg/dL 1.2 Est GFR (CKD-EPI 2020) (mL/min/1.73m2) 65.87 Glucose (74-106) mg/dL 151 H Calcium (8.5-10.1) mg/dL 9.3 Magnesium (1.8-2.4) mg/dL 2.2 Total Bilirubin (0.2-1.0) mg/dL 0.5 AST (15-37) U/L 78 H ALT (16-63) U/L 41 Alkaline Phosphatase (46-116) U/L 69 Ammonia (11-32) umol/L 17 Creatine Kinase (39-308) U/L 988 H Troponin I (< or =60) ng/L < 50 C-Reactive Protein (<or=0.5) mg/dL 6.12 H NT-Pro-B Natriuret Pep (<300) pg/mL 215 Total Protein (6.4-8.2) g/dL 8.0 Albumin (3.4-5.0) g/dL 3.1 L Lipase (16-77) U/L 28 Procalcitonin ng/mL < 0.1 Urine Color (Yellow) Dark Yellow Urine Clarity (Clear) Sl Cloudy Urine pH (5-8) 5.5 Ur Specific [place] (1.005-1.025) >= 1.030 H Urine Protein (Negative) mg/dL 100 H Urine Ketones (Negative) mg/dL Negative Urine Blood (Negative) Trace-intact H Urine Nitrite (Negative) Negative Urine Bilirubin (Negative) Small H Urine Urobilinogen (Up to 0.2) mg/dL 1.0 H Ur Leukocyte Esterase (Negative) Negative Urine RBC (0-2) HPF 0-2 Urine WBC (0-5) HPF 5-10 Ur Epithelial Cells (Negative) HPF Rare Urine Crystals (Negative) HPF Negative Urine Bacteria (Negative) HPF Rare Urine Casts (Negative) LPF 0-2 Coarse Granular Urine Mucus (Negative) Moderate Urine Other (Negative) Rare Renal Ur Culture Indicated? Yes Urine Glucose (Negative) mg/dL Negative Quality:[facility] Health Related Social Needs: No Data to Display <Sim Renteria MD - Last Filed: 06/12/23 23:19> Date: 06/12/23 Time: 19:20 Note: Patient seen, examined, and discussed with GEE Sales. Patient is here with septic shock. Suspect right axillary cellulitis as source. Second IV established. Plan to continue volume resuscitation and monitor closely. Should he not respond to fluid bolus, plan to initiate treatment with norepinephrine. Plan to initiate treatment with broad-spectrum IV antibiotic coverage including vancomycin and cefepime. Patient will require hospitalization for further critical care treatment. I agree with treatment plan as discussed/documented. Critical Care Time <Sim Renteria MD - Last Filed: 06/12/23 23:19> Critical Care Time Critical Care Time: Yes Total Critical Care Time: 55 Attestation: I spent greater than 55 minutes addressing this patient's immediate life threats. Please see MDM section of note. This time was spent engaged in work directly related to the patient's care, exclusive of separate procedures, and failure to initiate these interventions would have likely resulted in clinically significant or life threatening deterioration in the patient's condition. PFSH <GEE Samson - Last Filed: 06/12/23 22:26> All Active Problems (Updated 06/12/23 @ 22:28 by Gavin Cr) Hyperglycemia due to type 2 diabetes mellitus (Acute) Sepsis (Acute) Cellulitis (Acute) Non-compliant patient (Acute) Ulcer of left foot with fat layer exposed (Acute) Lymphedema (Acute) Venous insufficiency of both lower extremities (Acute) Atherosclerosis of [place] arteries of right leg with ulceration of unspecified site (Acute) Atherosclerosis of [place] arteries of left leg with ulceration of other part of foot (Acute) Callus of foot (Acute) Localized edema (Acute) Neuropathy (Acute) Ulcer of other part of foot (Acute) Corns and callosities (Acute) Nail dystrophy (Acute) Glaucoma (Chronic) BPH (benign prostatic hyperplasia) (Chronic) TANI (obstructive sleep apnea) (Chronic) Hyperlipidemia (Acute) Peripheral artery disease (Acute) Peripheral neuropathy (Acute) Hypertension (Chronic) Medical History Frostbite bi-lat feet, related to exposure at work ([id number]) Congestive heart failure (CHF) Amputated toe of right foot 1st toe 03/2009 Amputated toe of left foot 1st toe 2007 Social History Smoking/Tobacco Use Status: Never Tobacco: How many years used: 25 Smoking risk assessment performed?: Yes Alcohol Intake: never Drug use: Never Substance use type: does not use Housing: apartment Do you feel safe at home: Yes Do you feel safe in your relationship?: Yes Discharge Plan Disposition Patient Disposition: Admit to [facility] Condition: Fair Discharge Details Clinical Impression: Hypoxic respiratory failure, Cellulitis, Sepsis Admit Date/Time: 06/12/23 22:14 Admit Provider: Gavin Cr Attending Provider: Gavin Cr Primary Care Provider: JOSE FRANCISCO ARCE ED Provider: Malcom Sales
[2023-06-12] MEDS: Normal Saline 1,000 ML 1000 ML IV ×2 (19:05→19:46)
[2023-06-12 19:09] LABS: BE (Venous) 3 mmol/L (-2-3); HCO3 (Venous) 29 mmol/L (23-28); O2 Sat (Venous) 80 %; TCO2 (Venous) 26 mmol/L (24-29); pCO2 (Venous) 56 mmHg (41-51); pH (Venous) 7.32 (7.31-7.41); pO2 (Venous) 50 mmHg
[2023-06-12 19:11] LABS: Abs Immature Grans 0.04 10^3/uL (0.0-0.06); Absolute Basophil Count 0.04 10^3/uL (0.0-0.2); Absolute Eosinophil Count 0.07 10^3/uL (0.0-0.7); Absolute Lymphocyte Count 0.75 10^3/uL (1.2-3.4); Absolute Monocyte Count 0.93 10^3/uL (0.1-0.8); Basophils % 0.3; Eosinophils % 0.5; HCT 46.7 % (40.0-50.0); HGB 14.9 g/dL (13.5-17.5); Immature Grans % 0.3; Lactate 1.3 mmol/L (0.6-1.4); Lymphocytes % 5.7; MCH 28.7 pg (27.0-33.0); MCHC 31.9 % (32.0-36.0); MCV 90 fL (80-95); MPV 9.8 fL (8.0-11.0); Monocytes % 7.1; Neutrophils % 86.1; Platelet Count 267 10^3/uL (130-400); RDW-SD 49.3 fL; WBC 13.08 10^3/uL (4.4-10.8)
[2023-06-12 19:13] LABS: Absolute Neutrophil Count 11.26 10^3/uL (1.2-6.7)
[2023-06-12 19:14] LABS: ESR 50 mm/hr (0-20)
[2023-06-12] MEDS: CEFEPIME 2 GM in Normal Saline 100 ML IVPB (19:45)
[2023-06-12 19:56] LABS: D-Dimer 2545 ng/mlFEU (<500)
[2023-06-12 19:57] LABS: Procalcitonin < 0.1 ng/mL
[2023-06-12 20:00] LABS: Bilirubin Small (Negative); Blood Trace-intact (Negative); Clarity Sl Cloudy (Clear); Glucose Negative (Negative); Ketones Negative (Negative); Leukocyte Esterase Negative (Negative); Nitrite Negative (Negative); Specific Gravity >= 1.030 (1.005-1.025); pH 5.5 (5-8)
[2023-06-12] MEDS: VANCOMYCIN 2,000 MG in Normal Saline 500 ML 250 MG IVPB (20:00)
[2023-06-12 20:06] LABS: ALT 41 U/L (16-63); AST 78 U/L (15-37); Albumin 3.1 g/dL (3.4-5.0); Alkaline Phosphatase 69 U/L (46-116); Anion Gap 9.3 mmol/L (3-11); BUN 33 mg/dL (7-18); Bilirubin, Total 0.5 mg/dL (0.2-1.0); C-Reactive Protein 6.12 mg/dL (<or=0.5); CO2 28.7 mmol/L (21.0-32.0); CREATININE 1.2 mg/dL (0.70-1.30); Calcium 9.3 mg/dL (8.5-10.1); Chloride 104 mmol/L (98-107); Creatine Kinase 988 U/L (39-308); Estimated GFR 65.87 (mL/min/1.73m2); Glucose 151 mg/dL (74-106); Magnesium 2.2 mg/dL (1.8-2.4); NT-proBNP 215 pg/mL (<300); Potassium 4.6 mmol/L (3.5-5.1); Sodium 142 mmol/L (136-145); Troponin I < 50 ng/L (< or =60)
[2023-06-12 20:09] LABS: Bacteria Rare HPF (Negative); Casts 0-2 Coarse Granular LPF (Negative); Crystals Negative HPF (Negative); Epithelial Cells Rare HPF (Negative); Other Cells Rare Renal (Negative); RBC 0-2 HPF (0-2)
[2023-06-12 20:10] LABS: C & S Indicated? Yes; Mucus Moderate (Negative)
--- NOTE | 2023-06-12 20:15 | DI.CT_ITS ---
Exam(s) CT CHEST PE CTA EXAM: CT CHEST PE CTA CLINICAL HISTORY: elevated d-dimer, hypoxia. TECHNIQUE: Imaging Protocol: Axial CT angiography was performed with multi-slice acquisition and mu lti-planar reconstructions as well as axial, coronal and sagittal MIP reconstructions. CONTRAST MATERIAL: Intravenous: Omnipaque 350 Contrast volume:100 ml COMPARISON: No exams were available for comparison FINDINGS: Exam limited by motion artifact. Pulmonary Arteries: No evidence of filling defect to suggest pulmonary emboli. Tracheobronchial tree: No mucous plugging. Mediastinum and Elida: No dominant adenopathy or fluid collection. Pulmonary parenchyma: Extremely limited evaluation due to motion and expiratory changes. Bibasilar a telectasis. Superimposed pneumonia not excluded. 1.8 centimeter rounded focus medial right lung ape x. Pleura: No effusion or pneumothorax. Heart: The heart is mildly dilated. Mild coronary artery calcifications are seen. Aorta: Thoracic aorta non-dilated. No dissection. Upper abdomen: No acute findings. Bones: Unremarkable for age. Tubes, Catheters, and Lines: None Soft tissues: Unremarkable. IMPRESSION: No evidence of pulmonary embolism. Lungs suboptimally evaluated due to expiratory changes and motion. 1.8 centimeter focus in the righ t upper lobe follow-up CT could be considered in 3 months. Significant bibasilar atelectasis, right greater than left. Pneumonia not entirely excluded. RADIATION DOSE DELIVERED: Total DLP DATA REPOSITORY: All CT scans at this facility are submitted to the National Radiology Data Registry (NRDR) Dose Index Registry (DIR) with the [employer] (ACR). RADIATION OPTIMIZATION: All CT scans at this facility use at least one of these dose optimization te chniques: automated exposure control; mA and/or kV adjustment per patient size (includes targeted exa ms where dose is matched to clinical indication); or iterative reconstruction.
[2023-06-12 20:28] LABS: Ammonia 17 umol/L (11-32)
[2023-06-12] MEDS: Normal Saline - Diluent 50 ML VIAL IJ (21:15)
[2023-06-12] MEDS: Omnipaque 350 MG/ML 100 ML BTL IJ (21:17)
[2023-06-12] MEDS: Normal Saline Flush 10 ML SYR IVP (21:18)
[2023-06-12 21:34] LABS: Lipase 28 U/L (16-77)
--- NOTE | 2023-06-12 21:45 | DI.VRAD_ITS ---
PROCEDURE INFORMATION: Exam: CTA Chest With Contrast Exam date and time: 06/12/2023 9:08 PM Age: 67 years old Clinical indication: Other: Elevated d dimer, hypoxia; Additional info: Patient could not lift arms above head. Best images possible. TECHNIQUE: Imaging protocol: Computed tomographic angiography of the chest with contrast. Exam focused on the arteries. 3D rendering (Not supervised by radiologist): MIP and/or 3D reconstructed images were created by the technologist. Radiation optimization: All CT scans at this facility use at least one of these dose optimization techniques: automated exposure control; mA and/or kV adjustment per patient size (includes targeted exams where dose is matched to clinical indication); or iterative reconstruction. Contrast material: [id number]; Contrast volume: 100 ml; Contrast route: INTRAVENOUS (IV); COMPARISON: No relevant prior studies available. FINDINGS: Pulmonary arteries: No major segmental pulmonary artery emboli; motion artifact distally. Aorta: No aortic aneurysm. No aortic dissection. Lungs: Patchy mild bibasilar opacities favoring subsegmental atelectasis over pneumonia. Slightly more rounded 17 mm right upper lobe ground-glass lesion, potential more rounded component of about 2 cm in the right lower lobe. Both are very challenging to assess due to motion. Consider follow-up with better motion control when clinically appropriate to assess the nature of these lesions. Pleural spaces: No pneumothorax. No pleural effusion. Heart: Mild cardiomegaly. Lymph nodes: No enlarged lymph nodes. Diaphragm: Elevated right hemidiaphragm. Bones/joints: No acute fracture or listhesis allowing for motion. Soft tissues: No suspicious lesions. Other findings: Motion artifact. IMPRESSION: 1. No major segmental pulmonary artery emboli; motion artifact distally. 2. Patchy mild bibasilar opacities favoring subsegmental atelectasis over pneumonia. 3. Additional incidental findings as above. Dictated and Authenticated by: Danyelle Barrett MD. Ordering:XOCHILT العراقي MD
--- NOTE | 2023-06-12 22:03 | W.PM.HP.N ---
Date of service: 06/12/23 Time of Service: 22:03 Assessment and Plan Assessment and plan (1) Sepsis: Start date: 06/12/23 Status: Acute Assessment and plan: Patient is a 67-year-old gentleman who lives in an assisted living facility found on the floor with mild rhabdomyolysis and sepsis syndrome having cellulitis of his right axillary area and chronic ulcers left foot. Cultures have been done and patient was began on vancomycin with cefepime and IV hydration which has helped his blood pressure. He has a history of edema and fluid resuscitation will be cautious. He appears to be stabilizing and will be continued with monitoring labs and symptoms as well as follow-up cultures adjust as needed. He appears to be overall improving. He is a DNR/DNI. His living situation may need to be reevaluated. Qualifiers: Sepsis acute organ dysfunction status: without acute organ dysfunction Sepsis type: sepsis due to unspecified organism Qualified Code(s): A41.9 - Sepsis, unspecified organism (2) Cellulitis: Start date: 06/12/23 Status: Acute Assessment and plan: Right axilla which should be covered by antibiotic coverage with cultures pending. Wound care of left foot ulcer as needed but this being chronic over the last 2 years. Qualifiers: Laterality: right Site of cellulitis: extremity Site of cellulitis of extremity: upper extremity Qualified Code(s): L03.113 - Cellulitis of right upper limb (3) Pneumonia: Start date: 06/12/23 Status: Acute Assessment and plan: Patchy infiltrates on both bases which will be covered by IV antibiotic therapy. Consider adding atypical coverage with doxycycline. Qualifiers: Pneumonia type: due to unspecified organism Laterality: bilateral Lung location: lower lobe of lung Qualified Code(s): J18.9 - Pneumonia, unspecified organism (4) Traumatic rhabdomyolysis: Start date: 06/12/23 Status: Acute Assessment and plan: Moderate elevation of CPK with IV hydration having been performed, follow-up CPK trending downward this does not need to be followed. Qualifiers: Encounter type: initial encounter Qualified Code(s): T79.6XXA - Traumatic ischemia of muscle, initial encounter (5) Hyperglycemia due to type 2 diabetes mellitus: Status: Chronic Assessment and plan: Glucometers before meals and at bedtime with sliding scale of short acting insulin coverage. Patient is not on treatment as an outpatient. Appropriate diet and weight loss would help this problem long-term. Qualifiers: Diabetes mellitus supervisor intermediates insulin use: without supervisor intermediates use Qualified Code(s): E11.65 - Type 2 diabetes mellitus with hyperglycemia History of Present Illness History of Present Illness Chief Complaint: Possible fall being found on floor at [facility] Narrative: This is a 67-year-old male patient who resides at an assisted living facility who has chronic mobility issues being morbidly obese and having a chronic left foot ulcer being seen by podiatry in the last 2 years. He had a possible fall with EMS called for lift assist and he had unstable vitals on scene with hypoxemia, tachycardia and once arriving to the ED also had hypotension. He was noted to have a erythematous large patch over his right armpit denies any fever or chills. In the ED was evaluated for possible sepsis syndrome and IV hydration did help stabilize his blood pressure with this being initiated in the field. O2 at 2 L/min nasal cannula also corrected his hypoxemia. Manifested no significant fever but did have an elevated WBC and positive D-dimer with negative CTA of the chest for pulmonary emboli but positive for bibasilar infiltrates. Did have an elevated CK which was mildly elevated and did spend some time in the floor telling the assistance at the facility that he did not fall but laid down on the floor. IV hydration should help this. Initially was he was a full code but patient is a DNR/DNI. Care will be consulted to ensure culture is appropriate. Patient offers no other complaints and was very talkative. Review of Systems Narrative: 13 point review of systems otherwise unrevealing or stable. Patient is chronically weak and morbidly obese with difficulty standing without feeling like he is going to fall. [facility] All Active Problems (Updated 06/13/23 @ 08:42 by Gavin Cr) Traumatic rhabdomyolysis (Acute) Pneumonia (Acute) Hyperglycemia due to type 2 diabetes mellitus (Chronic) Sepsis (Acute) Cellulitis (Acute) Non-compliant patient (Acute) Ulcer of left foot with fat layer exposed (Acute) Lymphedema (Acute) Venous insufficiency of both lower extremities (Acute) Atherosclerosis of [place] arteries of right leg with ulceration of unspecified site (Acute) Atherosclerosis of [place] arteries of left leg with ulceration of other part of foot (Acute) Callus of foot (Acute) Localized edema (Acute) Neuropathy (Acute) Ulcer of other part of foot (Acute) Corns and callosities (Acute) Nail dystrophy (Acute) Glaucoma (Chronic) BPH (benign prostatic hyperplasia) (Chronic) TANI (obstructive sleep apnea) (Chronic) Hyperlipidemia (Acute) Peripheral artery disease (Acute) Peripheral neuropathy (Acute) Hypertension (Chronic) Medical History Frostbite bi-lat feet, related to exposure at work ([id number]) Congestive heart failure (CHF) Amputated toe of right foot 1st toe 03/2009 Amputated toe of left foot 1st toe 2007 Social History Smoking/Tobacco Use Status: Never Tobacco: How many years used: 25 Smoking risk assessment performed?: Yes Alcohol Intake: never Drug use: Never Substance use type: does not use Housing: apartment Do you feel safe at home: Yes Do you feel safe in your relationship?: Yes Meds Allergies and Home Medications Allergies Allergy/AdvReac Type Severity Reaction Status Date / Time diethylstilbestrol Allergy Unknown Other (See Verified 06/12/23 18:40 Comment) Penicillins Allergy Diarrhea Verified 06/12/23 18:40 milk AdvReac Intermediate Diarrhea Verified 06/12/23 18:40 lobster AdvReac Mild Anaphylaxis Uncoded 06/12/23 18:40 Home Medications Medication Instructions Recorded Confirmed Type acetaminophen 500 mg capsule 500 mg PO Q6H PRN 01/16/22 06/01/23 History amitriptyline 25 mg tablet 25 mg PO DAILY 01/16/22 06/01/23 History aspirin 81 mg chewable tablet 81 mg PO DAILY 01/16/22 06/01/23 History atorvastatin 20 mg tablet 20 mg PO DAILY 01/16/22 06/01/23 History finasteride 5 mg tablet 5 mg PO DAILY 01/16/22 06/01/23 History furosemide 40 mg tablet 40 mg PO DAILY 01/16/22 06/01/23 History olmesartan 20 mg tablet (Benicar) 20 mg PO DAILY 01/16/22 06/01/23 History omeprazole 20 mg capsule,delayed 20 mg PO DAILY 01/16/22 06/01/23 History release tamsulosin 0.4 mg capsule 0.4 mg PO DAILY 01/16/22 06/01/23 History vitamin E mixed 1,000 unit capsule unit PO 01/16/22 06/01/23 History cholecalciferol (vitamin D3) 75 75 mcg PO DAILY 02/09/23 06/01/23 History mcg (3,000 unit) tablet ciprofloxacin HCl 500 mg tablet 500 mg PO BID #28 tabs 03/17/23 06/01/23 Rx (Cipro) clindamycin HCl 300 mg capsule 300 mg PO TID 10 days #30 caps 06/04/23 Rx Exam Narrative Exam Narrative: General: Patient appears older than stated age, morbidly obese, unkempt. He is alert and oriented to person, place and time. He is in no acute distress. HEENT: Normocephalic, eyes with pupils equal and reactive to light symmetrically, extraocular movement intact and sclera anicteric. Oropharynx with dry mucosa and poor dentition with missing teeth. Face has coarsened features. Neck: Supple without JVD. Back: Stooped posture without CVA tenderness. Lungs: Decreased aeration both bases with no focalizing rales or rhonchi. Fair aeration. Heart: Tachycardic rate with slightly irregular rhythm, gallop is appreciated with systolic murmur over left sternal border. Abdomen: Obese contour, soft nontender palpation no palpable hepatosplenomegaly. Bowel sounds positive all quadrants. Genitalia/rectal: Exam deferred. Patient does have Portillo catheter in place. Extremities: Obese extremities with nonpitting edema lower extremity more than upper extremities, no clubbing or cyanosis. Left foot is bandaged with chronic ulcer as stated and no erythema or swelling of the toes. There are chronic arthritic changes of the joints with decreased range of motion. Fair capillary refill. Skin: Unkempt with skin breakdown over the chest and large erythematous patch over the axilla and right chest wall above the nipple which has increased warmth to touch and no blanching. Mild induration. Skin otherwise normal color, warm and dry. Neuro: Cranial nerves II through XII grossly intact, no focal motor deficits or tremor. Psych: Normal affect and mood. No abnormal thought processes medicine. Remote and recent memory appear to be grossly intact. Results Imaging Imaging Studies: Exam: CTA Chest With Contrast Exam date and time: 06/12/2023 9:08 PM Age: 67 years old Clinical indication: Other: Elevated d dimer, hypoxia; Additional info: Patient could not lift arms above head. Best images possible. TECHNIQUE: Imaging protocol: Computed tomographic angiography of the chest with contrast. Exam focused on the arteries. 3D rendering (Not supervised by radiologist): MIP and/or 3D reconstructed images were created by the technologist. Radiation optimization: All CT scans at this facility use at least one of these dose optimization techniques: automated exposure control; mA and/or kV adjustment per patient size (includes targeted exams where dose is matched to clinical indication); or iterative reconstruction. Contrast material: [id number]; Contrast volume: 100 ml; Contrast route: INTRAVENOUS (IV); COMPARISON: No relevant prior studies available. FINDINGS: Pulmonary arteries: No major segmental pulmonary artery emboli; motion artifact distally. Aorta: No aortic aneurysm. No aortic dissection. Lungs: Patchy mild bibasilar opacities favoring subsegmental atelectasis over pneumonia. Slightly more rounded 17 mm right upper lobe ground-glass lesion, potential more rounded component of about 2 cm in the right lower lobe. Both are very challenging to assess due to motion. Consider follow-up with better motion control when clinically appropriate to assess the nature of these lesions. Pleural spaces: No pneumothorax. No pleural effusion. Heart: Mild cardiomegaly. Lymph nodes: No enlarged lymph nodes. Diaphragm: Elevated right hemidiaphragm. Bones/joints: No acute fracture or listhesis allowing for motion. Soft tissues: No suspicious lesions. Other findings: Motion artifact. IMPRESSION: 1. No major segmental pulmonary artery emboli; motion artifact distally. 2. Patchy mild bibasilar opacities favoring subsegmental atelectasis over pneumonia. 3. Additional incidental findings as above. Labs 06/12/23 18:58 06/12/23 18:48 Labs: Laboratory Results - last 24 hr 06/12/23 06/12/23 06/12/23 18:48 18:58 19:37 WBC 13.08 H RBC 5.20 Hgb 14.9 Hct 46.7 MCV 90 MCH 28.7 MCHC 31.9 L RDW 15.0 H Plt Count 267 MPV 9.8 Immature Gran % 0.3 Neutrophils % 86.1 Lymphocytes % 5.7 Monocytes % 7.1 Eosinophils % 0.5 Basophils % 0.3 Nucleated RBC % 0.0 Absolute Neutrophils 11.26 H Absolute Lymphocytes 0.75 L Absolute Monocytes 0.93 H Absolute Eosinophils 0.07 Absolute Basophils 0.04 ESR 50 H D-Dimer 2545 H VBG pH 7.32 VBG pCO2 56 H VBG pO2 50 VBG HCO3 29 H VBG Total CO2 26 VBG O2 Saturation 80 VBG Base Excess 3 VBG Lactate 1.3 Sodium 142 Potassium 4.6 Chloride 104 Carbon Dioxide 28.7 Anion Gap 9.3 BUN 33 H Creatinine 1.2 Est GFR (CKD-EPI 2020) 65.87 Glucose 151 H Calcium 9.3 Magnesium 2.2 Total Bilirubin 0.5 AST 78 H ALT 41 Alkaline Phosphatase 69 Ammonia 17 Creatine Kinase 988 H Troponin I < 50 C-Reactive Protein 6.12 H NT-Pro-B Natriuret Pep 215 Total Protein 8.0 Albumin 3.1 L Lipase 28 Procalcitonin < 0.1 Urine Color Dark Yellow Urine Clarity Sl Cloudy Urine pH 5.5 Ur Specific [place] >= 1.030 H Urine Protein 100 H Urine Ketones Negative Urine Blood Trace-intact H Urine Nitrite Negative Urine Bilirubin Small H Urine Urobilinogen 1.0 H Ur Leukocyte Esterase Negative Urine RBC 0-2 Urine WBC 5-10 Ur Epithelial Cells Rare Urine Crystals Negative Urine Bacteria Rare Urine Casts 0-2 Coarse Granular Urine Mucus Moderate Urine Other Rare Renal Ur Culture Indicated? Yes Urine Glucose Negative Last Vital Signs Temp 37.3 C 06/12/23 18:30 Pulse 100 H 06/12/23 21:02 Resp 21 06/12/23 21:02 BP 105/37 L 06/12/23 21: Pulse Ox 87 L 06/12/23 21:00 Time Spent Time spent with Patient: >75 minutes Time was spent: preparing to see the patient(eg.review tests), obtaining and/or reviewing separately otained hiistory, ordering medications,tests, procedures, referring, communicating with other health healthcare receptionist, indepentently interpreting results, counseling the patient and care coordination
[2023-06-12 22:53] LABS: Troponin I < 50 ng/L (< or =60)
[2023-06-12] MEDS: Normal Saline 1,000 ML 125 ML IV (23:15)
[2023-06-13] VITALS (44 sets, daily range): BP systolic 95–131; BP diastolic 41–85; PULSE 78–103; RESP 17–35; TEMP 36–36.9; O2SAT 89–96
--- NOTE | 2023-06-13 | DI.RAD_ITS ---
Exam(s) XR FOOT LT COMPLETE EXAM: XR FOOT LT COMPLETE CLINICAL HISTORY: chronic left heel ulcer. TECHNIQUE: 2D digital imaging was performed. Three views. COMPARISON: No exams were available for comparison FINDINGS: BONES: No acute fracture is present. No bony destructive lesion is seen. Prior amputation of the 1s t toe. JOINTS: No dislocation present. SOFT TISSUE: Diffuse soft tissue swelling. Soft tissue defect in heel. No abnormal gas collection o r foreign body. IMPRESSION: Heel ulcer. No foreign body or bony erosion. DATA REPOSITORY: RADIATION DOSE DELIVERED:
[2023-06-13] MEDS: Miconazole 2% Topical Powder 85 GM BTL (01:11)
[2023-06-13] MEDS: Normal Saline Flush 10 ML SYR IVP (01:11)
[2023-06-13] MEDS: CEFEPIME 2 GM in Normal Saline 100 ML IVPB ×3 (04:46→19:44)
[2023-06-13] MEDS: Normal Saline 1,000 ML 125 ML IV (06:26)
[2023-06-13 07:41] LABS: HCT 42.4 % (40.0-50.0); HGB 13.2 g/dL (13.5-17.5); MCH 28.6 pg (27.0-33.0); MCHC 31.1 % (32.0-36.0); MCV 92 fL (80-95); MPV 9.6 fL (8.0-11.0); Platelet Count 213 10^3/uL (130-400); RBC 4.61 10^6/uL (4.36-5.78); RDW 15.3 % (11.8-14.1); RDW-SD 51.7 fL; WBC 10.05 10^3/uL (4.4-10.8)
--- NOTE | 2023-06-13 07:55 | NUR.NOTE ---
RN sets up breakfast tray for breakfast. Patient begins feeding himself up in chair.Nursing Note:
[2023-06-13 07:57] LABS: ALT 39 U/L (16-63); AST 103 U/L (15-37); Albumin 2.4 g/dL (3.4-5.0); Alkaline Phosphatase 61 U/L (46-116); Anion Gap 1.5 mmol/L (3-11); BUN 22 mg/dL (7-18); Bilirubin, Total 0.3 mg/dL (0.2-1.0); CO2 32.5 mmol/L (21.0-32.0); CREATININE 0.7 mg/dL (0.70-1.30); Calcium 8.4 mg/dL (8.5-10.1); Chloride 111 mmol/L (98-107); Estimated GFR 100.37 (mL/min/1.73m2); Glucose 123 mg/dL (74-106); Magnesium 2.1 mg/dL (1.8-2.4); Potassium 4.6 mmol/L (3.5-5.1); Sodium 145 mmol/L (136-145); Total Protein 6.7 g/dL (6.4-8.2); Vancomycin, Trough 11.6 ug/mL (10.0-20.0)
[2023-06-13 08:14] LABS: Lab Add On Test DONE
--- NOTE | 2023-06-13 08:32 | PDOC.CMIN ---
Date of service: 06/13/23 Time of Service: 08:34 Care Management Initial Assmt Initial Assessment REASON FOR HOSPITALIZATION:: Sepsis syndrome, Cellulitis right armpit PREVIOUS FUNCTIONAL STATUS/SOCIAL/FAMILY SUPPORTS:: Resides at [facility] CURRENT FUNCTIONAL STATUS:: Up in chair, eating breakfast. Ambulating independently with FWW. ADVANCE DIRECTIVES:: None on file. Has patient been provided with info about the portal/API?: No Did the patient sign up for the portal?: No CODE STATUS:: DNR/DNI INSURANCE COVERAGE / FINANCIAL ISSUES:: [facility], [facility] PRIMARY CARE PHYSICIAN:: Darya Adame POTENTIAL DISCHARGE NEEDS:: Follow up appointments PATIENT/FAMILY EDUCATION NEEDS:: Review discharge instructions, discuss Ask Me Three. ANTICIPATED BARRIERS TO DISCHARGE:: None identified. TRANSPORTATION:: Via private vehicle. PLAN:: Anticipate Gilberto will return home when ready per MD. He will be evaluated for increased services, CM continues to follow. PFSH All Active Problems (Updated 06/13/23 @ 13:34 by Finesse Rader MD) Opacity of lung on imaging study (Acute) Traumatic rhabdomyolysis (Acute) Pneumonia (Acute) Hyperglycemia due to type 2 diabetes mellitus (Chronic) Sepsis (Acute) Cellulitis (Acute) Non-compliant patient (Acute) Ulcer of left foot with fat layer exposed (Acute) Lymphedema (Acute) Venous insufficiency of both lower extremities (Acute) Atherosclerosis of [place] arteries of right leg with ulceration of unspecified site (Acute) Atherosclerosis of [place] arteries of left leg with ulceration of other part of foot (Acute) Callus of foot (Acute) Localized edema (Acute) Neuropathy (Acute) Ulcer of other part of foot (Acute) Corns and callosities (Acute) Nail dystrophy (Acute) Glaucoma (Chronic) BPH (benign prostatic hyperplasia) (Chronic) TANI (obstructive sleep apnea) (Chronic) Hyperlipidemia (Acute) Peripheral artery disease (Acute) Peripheral neuropathy (Acute) Hypertension (Chronic) Medical History Frostbite bi-lat feet, related to exposure at work ([id number]) Congestive heart failure (CHF) Amputated toe of right foot 1st toe 03/2009 Amputated toe of left foot 1st toe 2007 Social History Smoking/Tobacco Use Status: Never Tobacco: How many years used: 25 Smoking risk assessment performed?: Yes Alcohol Intake: never Drug use: Never Substance use type: does not use Housing: apartment Do you feel safe at home: Yes Do you feel safe in your relationship?: Yes SDOH(Care Management) Screening Will the Patient Participate in the Screening?: Unable to obtain
[2023-06-13 09:01] LABS: Hemoglobin A1C 6.3 % (<5.7)
[2023-06-13] MEDS: Aspirin 81 MG CHEW PO (09:15)
[2023-06-13] MEDS: Enoxaparin 40 MG/0.4 ML SYR SC (09:15)
[2023-06-13] MEDS: Cholecalciferol (Vitamin D3) 1,000 UNIT TAB 3000 UNITS PO (09:15)
[2023-06-13] MEDS: Amitriptyline 25 MG TAB PO (09:15)
[2023-06-13] MEDS: Atorvastatin 20 MG TAB PO (09:15)
[2023-06-13] MEDS: Furosemide 40 MG TAB PO (09:16)
[2023-06-13] MEDS: Finasteride 5 MG TAB PO (09:16)
[2023-06-13] MEDS: Omeprazole 20 MG CAPCR PO (09:17)
[2023-06-13] MEDS: Tamsulosin 0.4 MG CAPCR PO (09:17)
[2023-06-13] MEDS: Polyethylene Glycol 3350 17 GM PACKET PO (09:26)
[2023-06-13] MEDS: Docusate Sodium 100 MG CAP PO (09:26)
[2023-06-13] MEDS: VANCOMYCIN/WATER (PEG) 1 GM/200 ML BAG IVPB (09:28)
--- NOTE | 2023-06-13 10:26 | NUR.NOTE ---
RN speaks with pharmacist who authorized increase in Vancomycin does to 200ml/hr to be followed by a 750mg new Vancomycin bag that will be delivered to unit.Nursing Note:
--- NOTE | 2023-06-13 10:55 | W.PM.PROGNOT ---
Date of Service Date of service: 06/13/23 Time of Service: 10:56 Assessment and Plan Assessment and plan (1) Sepsis: Start date: 06/12/23 Status: Acute Assessment and plan: Patient did present with signs of sepsis and sepsis including evidence of an acute infection along with tachycardia and hypotension and a leukocytosis although his procalcitonin level and lactate level were normal and he had no endorgan damage to suggest any shock. Clinically he is improving his white cell count is improved overnight with parenteral antibiotics including vancomycin and cefepime. More likely this is probably a strep infection and we may be able to downgrade to Ancef or high-dose penicillin however I will continue current antibiotic regimen until we get the results of his blood cultures. I am concerned about the swelling in the right arm and have ordered an ultrasound of the right arm and will ask for surgical consult to evaluate for lymphadenitis versus an abscess. Qualifiers: Sepsis type: sepsis due to unspecified organism Sepsis acute organ dysfunction status: without acute organ dysfunction Qualified Code(s): A41.9 - Sepsis, unspecified organism (2) Cellulitis: Start date: 06/12/23 Status: Acute Assessment and plan: As above. Will obtain MRSA screen and if this is negative and blood cultures did not show any staph and we will discontinue the vancomycin and Zeeshan favor of treatment for strep. Qualifiers: Site of cellulitis: extremity Site of cellulitis of extremity: upper extremity Laterality: right Qualified Code(s): L03.113 - Cellulitis of right upper limb (3) Traumatic rhabdomyolysis: Start date: 06/12/23 Status: Acute Assessment and plan: Moderate elevation of CPK with IV hydration having been performed, unfortunately CK is rising rather than falling going from 900 > 1800, I will resume iv fluids, monitor urine output (has holland in place w/ clear yellow urine and good urine output). He says he did have a fall at home when he bent over to pick something up and fell over lying on floor for about 1 hour before [place] came and got him up off the floor. continue to monitor renal function Qualifiers: Encounter type: initial encounter Qualified Code(s): T79.6XXA - Traumatic ischemia of muscle, initial encounter (4) Hyperglycemia due to type 2 diabetes mellitus: Status: Chronic Assessment and plan: Glucometers before meals and at bedtime with sliding scale of short acting insulin coverage. Patient is not on treatment as an outpatient. Appropriate diet and weight loss would help this problem long-term. Qualifiers: Diabetes mellitus terminal makeup operator insulin use: without usp use Qualified Code(s): E11.65 - Type 2 diabetes mellitus with hyperglycemia (5) Ulcer of left foot with fat layer exposed: Status: Acute Assessment and plan: consult wound care to continue outpatient treaments. (6) Venous insufficiency of both lower extremities: Status: Acute (7) Peripheral neuropathy: Status: Acute (8) BPH (benign prostatic hyperplasia): Status: Chronic Qualifiers: Lower urinary tract symptom presence: symptoms present (9) TANI (obstructive sleep apnea): Status: Chronic Assessment and plan: dx per PSG in [place] and was set up w/ CPAP 2009 but quit using in 2014 when [employer] recalled the machine. Patient declines to use CPAP. he should probably be on nocturnal oxygen. Currently on 2 lpm, consider room air nocturnal oximetry prior to dc home unless he requires home oxygen for other reasons. He is a former smoker, quit 30 yr ago. Note he has some bibasilar opacities on his chest CT which will need follow up. (10) Opacity of lung on imaging study: Status: Acute Assessment and plan: no clinical sx of pneumonia; will need follow up imaging when antibiotics are completed. Subjective Subjective Interval history since last seen: Gilberto is doing better this morning. He still has some pain as well as erythema and swelling in the right axilla and right upper arm and redness across the right anterior chest. He is afebrile this morning. He does not recall exactly when the rash came on but it started within the last few days. He just thought that it was a clogged duct sweat gland and that it would go away. Patient is hemodynamically stable he is currently on vancomycin and cefepime. There is also some question whether he has pneumonia or not he has some groundglass opacifications on his chest CT however he has no clinical signs or symptoms of pneumonia such as shortness of breath cough however last night he was hypoxemic and required supplemental oxygen. He is down to a couple liters nasal cannula now. Exam Narrative Exam Narrative: Obese white male who is sitting up in a chair able to talk in complete sentences not short of breath he is alert and orient x 3 Lungs are clear to auscultation with prolonged expiratory phase no rhonchi wheezes or rales Heart is regular rate and rhythm. Chest wall there is erythema across the right anterolateral chest wall and redness and induration in the right axilla and proximal right humerus. Right humerus is larger than his left humerus there is no tenderness on palpation of the humerus or the forearm but there is tenderness with palpation in the right axilla Abdomen: obese, soft, nontender Legs/feet: bilateral lower leg edema, venous varicosities and purplish discoloration to his legs/feet; he has open ulcer over left heel, no purulent drainage Objective Last Vital Signs Temp 36.7 C 06/13/23 07:30 Pulse 98 H 06/13/23 07:30 Resp 32 H 06/13/23 07:30 BP 108/67 06/13/23 07:30 Pulse Ox 93 06/13/23 07:30 Laboratory Results - last 24 hr 06/12/23 06/12/23 06/12/23 18:48 18:58 19:37 WBC 13.08 H RBC 5.20 Hgb 14.9 Hct 46.7 MCV 90 MCH 28.7 MCHC 31.9 L RDW 15.0 H Plt Count 267 MPV 9.8 Immature Gran % 0.3 Neutrophils % 86.1 Lymphocytes % 5.7 Monocytes % 7.1 Eosinophils % 0.5 Basophils % 0.3 Nucleated RBC % 0.0 Absolute Neutrophils 11.26 H Absolute Lymphocytes 0.75 L Absolute Monocytes 0.93 H Absolute Eosinophils 0.07 Absolute Basophils 0.04 ESR 50 H D-Dimer 2545 H VBG pH 7.32 VBG pCO2 56 H VBG pO2 50 VBG HCO3 29 H VBG Total CO2 26 VBG O2 Saturation 80 VBG Base Excess 3 VBG Lactate 1.3 Sodium 142 Potassium 4.6 Chloride 104 Carbon Dioxide 28.7 Anion Gap 9.3 BUN 33 H Creatinine 1.2 Est GFR (CKD-EPI 2020) 65.87 Glucose 151 H Hemoglobin A1c Calcium 9.3 Magnesium 2.2 Total Bilirubin 0.5 AST 78 H ALT 41 Alkaline Phosphatase 69 Ammonia 17 Creatine Kinase 988 H Troponin I < 50 C-Reactive Protein 6.12 H NT-Pro-B Natriuret Pep 215 Total Protein 8.0 Albumin 3.1 L Lipase 28 Procalcitonin < 0.1 Urine Color Dark Yellow Urine Clarity Sl Cloudy Urine pH 5.5 Ur Specific Gentry >= 1.030 H Urine Protein 100 H Urine Ketones Negative Urine Blood Trace-intact H Urine Nitrite Negative Urine Bilirubin Small H Urine Urobilinogen 1.0 H Ur Leukocyte Esterase Negative Urine RBC 0-2 Urine WBC 5-10 Ur Epithelial Cells Rare Urine Crystals Negative Urine Bacteria Rare Urine Casts 0-2 Coarse Granular Urine Mucus Moderate Urine Other Rare Renal Ur Culture Indicated? Yes Urine Glucose Negative Vancomycin Trough Add-On Test Request 06/12/23 06/13/23 22:25 07:33 WBC 10.05 RBC 4.61 Hgb 13.2 L Hct 42.4 MCV 92 MCH 28.6 MCHC 31.1 L RDW 15.3 H Plt Count 213 MPV 9.6 Immature Gran % Neutrophils % Lymphocytes % Monocytes % Eosinophils % Basophils % Nucleated RBC % Absolute Neutrophils Absolute Lymphocytes Absolute Monocytes Absolute Eosinophils Absolute Basophils ESR D-Dimer VBG pH VBG pCO2 VBG pO2 VBG HCO3 VBG Total CO2 VBG O2 Saturation VBG Base Excess VBG Lactate Sodium 145 Potassium 4.6 Chloride 111 H Carbon Dioxide 32.5 H Anion Gap 1.5 L BUN 22 H Creatinine 0.7 Est GFR (CKD-EPI 2020) 100.37 Glucose 123 H Hemoglobin A1c 6.3 H Calcium 8.4 L Magnesium 2.1 Total Bilirubin 0.3 AST 103 H ALT 39 Alkaline Phosphatase 61 Ammonia Creatine Kinase Troponin I < 50 C-Reactive Protein NT-Pro-B Natriuret Pep Total Protein 6.7 Albumin 2.4 L Lipase Procalcitonin Urine Color Urine Clarity Urine pH Ur Specific G[place] Urine Protein Urine Ketones Urine Blood Urine Nitrite Urine Bilirubin Urine Urobilinogen Ur Leukocyte Esterase Urine RBC Urine WBC Ur Epithelial Cells Urine Crystals Urine Bacteria Urine Casts Urine Mucus Urine Other Ur Culture Indicated? Urine Glucose Vancomycin Trough 11.6 Add-On Test Request DONE Time Spent with Patient Time Spent with Patient: 35-49 minutes Time was spent: preparing to see the patient(eg.review tests), ordering medications,tests, procedures, referring, communicating with other health personal care aid (Dr. Cr), indepentently interpreting results, counseling the patient and care coordination
--- NOTE | 2023-06-13 11:26 | DI.VRAD_ITS ---
PROCEDURE INFORMATION: Exam: XR Left Foot Exam date and time: 06/13/2023 11:06 AM Age: 67 years old Clinical indication: Other: Chronic left heel ulcer TECHNIQUE: Imaging protocol: Radiologic exam of the left foot. Views: 3 or more views. COMPARISON: No relevant prior studies available. FINDINGS: Bones/joints: Prior great toe amputation. No evidence of periosteal reaction. No acute fracture. Small calcaneal spurs. Subtalar degenerative changes and probable remote fracture Soft tissues: Large soft tissue ulcer in the heel plantar aspect. Diffuse soft tissue swelling IMPRESSION: Large soft tissue heel ulcer. No evidence of periosteal reaction Dictated and Authenticated by: Lourdes Bowers MD. Ordering:[facility] Prasanth Kilpatrick MD
[2023-06-13] MEDS: VANCOMYCIN/WATER (PEG) 750 MG/150 ML BAG 150 MG IVPB (11:29)
[2023-06-13 11:41] LABS: Creatine Kinase 1814 U/L (39-308)
[2023-06-13] MEDS: Lactated Ringers 1,000 ML 200 ML IV (13:48)
[2023-06-13 16:56] LABS: Creatine Kinase 1388 U/L (39-308)
[2023-06-13] MEDS: Acetaminophen 325 MG TAB PO ×2 (17:14→21:52)
[2023-06-13 20:00] LABS: MRSA PCR Negative (Negative)
[2023-06-13] MEDS: VANCOMYCIN/WATER (PEG) 1.75 GM/350 ML BAG IVPB (21:52)
[2023-06-13] MEDS: Insulin Aspart 300 UNITS/3 ML PEN SC (21:53)
[2023-06-14] MEDS: CEFEPIME 2 GM in Normal Saline 100 ML IVPB (04:20)
[2023-06-14 05:06] LABS: COVID-19 PCR Negative (Negative); Influenza A PCR Negative (Negative); Influenza B PCR Negative (Negative); RSV PCR Negative (Negative)
[2023-06-14 05:20] LABS: Source Nasopharynx
[2023-06-14] MEDS: Acetaminophen 325 MG TAB PO ×3 (05:25→20:00)
[2023-06-14 06:54] LABS: Abs Immature Grans 0.03 10^3/uL (0.0-0.06); Absolute Basophil Count 0.04 10^3/uL (0.0-0.2); Absolute Eosinophil Count 0.42 10^3/uL (0.0-0.7); Absolute Lymphocyte Count 0.78 10^3/uL (1.2-3.4); Absolute Monocyte Count 0.57 10^3/uL (0.1-0.8); Basophils % 0.5; Eosinophils % 5.6; HGB 14.5 g/dL (13.5-17.5); Immature Grans % 0.4; Lymphocytes % 10.3; MCH 28.6 pg (27.0-33.0); MCHC 30.9 % (32.0-36.0); MCV 93 fL (80-95); MPV 10.5 fL (8.0-11.0); Monocytes % 7.6; Neutrophils % 75.6; Platelet Count 205 10^3/uL (130-400); RBC 5.07 10^6/uL (4.36-5.78); RDW-SD 51.1 fL; WBC 7.54 10^3/uL (4.4-10.8)
[2023-06-14 07:25] VITALS: BP 119/71; PULSE 94; RESP 16; TEMP 36.4; O2SAT 96
[2023-06-14 07:27] LABS: Anion Gap 5.8 mmol/L (3-11); BUN 14 mg/dL (7-18); C-Reactive Protein 3.42 mg/dL (<or=0.5); CO2 30.2 mmol/L (21.0-32.0); CREATININE 0.7 mg/dL (0.70-1.30); Calcium 8.5 mg/dL (8.5-10.1); Chloride 102 mmol/L (98-107); Creatine Kinase 825 U/L (39-308); Estimated GFR 100.37 (mL/min/1.73m2); Glucose 85 mg/dL (74-106); Potassium 4.5 mmol/L (3.5-5.1); Sodium 138 mmol/L (136-145)
[2023-06-14] MEDS: Enoxaparin 40 MG/0.4 ML SYR SC (08:16)
[2023-06-14] MEDS: Normal Saline Flush 10 ML SYR IVP (08:16)
[2023-06-14] MEDS: Cholecalciferol (Vitamin D3) 1,000 UNIT TAB 3000 UNITS PO (08:17)
[2023-06-14] MEDS: Amitriptyline 25 MG TAB PO (08:17)
[2023-06-14] MEDS: Lisinopril 20 MG TAB PO (08:18)
[2023-06-14] MEDS: Omeprazole 20 MG CAPCR PO (08:18)
[2023-06-14] MEDS: Finasteride 5 MG TAB PO (08:18)
[2023-06-14] MEDS: Aspirin 81 MG CHEW PO (08:18)
[2023-06-14] MEDS: Atorvastatin 20 MG TAB PO (08:18)
[2023-06-14] MEDS: Tamsulosin 0.4 MG CAPCR PO (08:18)
[2023-06-14 10:59] VITALS: BP 114/62; PULSE 94; RESP 16; TEMP 36.1; O2SAT 96
[2023-06-14 12:06] VITALS: O2SAT 96
[2023-06-14] MEDS: ceFAZolin 2 GM/50 ML BAG IVPB ×2 (12:13→19:20)
[2023-06-14] MEDS: Lactated Ringers 1,000 ML 100 ML IV (14:10)
--- NOTE | 2023-06-14 14:43 | W.SURGCON ---
Date of service: 06/14/23 Time of Service: 14:00 Assessment and Plan Assessment and plan (1) Hidradenitis: Status: Acute Assessment and plan: 67-year-old man with multiple medical problems as comorbidities with a right chest wall/right axillary inflammatory process that seems very chronic in appearance and by the patient's history. I am really not sure exactly what the underlying diagnosis is but I do not think it is anything acute and I do not think it is cellulitis. I definitely do not think it is what caused him to need to come to the emergency room. The patient endorses this presumption. If I was to guess it looks like hidradenitis that is pretty bad from a clinical standpoint. I reviewed his CT scan and it looks to me like he has lots of enlarged lymph nodes in the area. Whether these are reactive or the underlying etiology is unclear. Maybe this is some sort of upper extremity lymphedema problem. The differential diagnosis definitely includes lymph node cancers and even could include breast cancer as a possible etiology. It looks like some portion of his chest wall is not visible on the CT because it was done for pulmonary embolism purposes. There is no palpable breast tumor but this could be the underlying diagnosis and should be excluded. I think this is probably less likely the diagnosis considering it has been going on for 4 years. Overall assessment and recommendations: This is nothing acute, urgent or likely contributing to him being in the hospital in my opinion and it does not warrant any sort of urgent surgical intervention and I do not think it is an acutely infectious process. I think it is worthwhile to discuss the CT findings with radiology tomorrow and have them review the chest wall and axilla to decipher and recommend what studies are best next. My guess is a focused ultrasound of the axilla along with probable ultrasound?guided biopsy of the lymph node(s). However they may recommend to repeat a chest CT getting the entire chest wall and axilla into view. They may recommend MRI. All of this can be done on an outpatient basis if he is otherwise eligible to be discharged. Probably worthwhile touching base with his PCP to ensure his follow-up care is coordinated since some of the studies may need to be done at a tertiary facility potentially. The surgery team will follow along peripherally while he is here in the hospital if he gets any further diagnostic imaging done here. He should otherwise follow-up with his PCP. History of Present Illness Narrative: 67-year-old man was admitted to the hospital a couple of nights ago because I could not get up at home and had to call the fire department. He has lots of chronic medical problems. He has peripheral vascular disease as well as obvious severe venous stasis disease. He sees podiatry on a regular basis and has had amputations. Hospital service consulted us today because of a swollen right chest wall and right upper extremity with redness. At the bedside the patient tells me that he has had this redness and swollen right chest wall since 2019 (4 years). He says it sore all the time but he is used to it. He said the redness does not really bother him but he does not know why it is red. He does not think he is ever had it investigated. PFSH All Active Problems (Updated 06/14/23 @ 14:50 by Bunny Lehman MD) Hidradenitis (Acute) Opacity of lung on imaging study (Acute) Traumatic rhabdomyolysis (Acute) Pneumonia (Acute) Hyperglycemia due to type 2 diabetes mellitus (Chronic) Sepsis (Acute) Cellulitis (Acute) Non-compliant patient (Acute) Ulcer of left foot with fat layer exposed (Acute) Lymphedema (Acute) Venous insufficiency of both lower extremities (Acute) Atherosclerosis of [place] arteries of right leg with ulceration of unspecified site (Acute) Atherosclerosis of [place] arteries of left leg with ulceration of other part of foot (Acute) Callus of foot (Acute) Localized edema (Acute) Neuropathy (Acute) Ulcer of other part of foot (Acute) Corns and callosities (Acute) Nail dystrophy (Acute) Glaucoma (Chronic) BPH (benign prostatic hyperplasia) (Chronic) TANI (obstructive sleep apnea) (Chronic) Hyperlipidemia (Acute) Peripheral artery disease (Acute) Peripheral neuropathy (Acute) Hypertension (Chronic) Medical History Frostbite bi-lat feet, related to exposure at work ([id number]) Congestive heart failure (CHF) Amputated toe of right foot 1st toe 03/2009 Amputated toe of left foot 1st toe 2007 Social History Smoking/Tobacco Use Status: Never Tobacco: How many years used: 25 Smoking risk assessment performed?: Yes Alcohol Intake: never Drug use: Never Substance use type: does not use Housing: apartment Do you feel safe at home: Yes Do you feel safe in your relationship?: Yes Exam Narrative Exam Narrative: General: Nontoxic, comfortable and interactive. Obese and in poor overall health. Neuro: Alert and oriented x 3 Psych: Upbeat and pleasant mood and affect, insight and understanding seem like they might be mildly impaired Chest: Nonlabored breathing on room air, normal rate Extremities: Free range of motion x 4. All 4 extremities are obese and seem mildly edematous. 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 They are quite swollen visibly. He is able to move both upper extremities. The right upper extremity does not seem limited by this chest wall redness/swelling. Chest wall: On the right side including the right axilla is some irritation in the soft tissue but it does not look like cellulitis to me. It is non-? blanching redness and seems splotchy and patchy. There is some mild induration associated but it feels mobile. His body habitus really limits any certain and definitive clinical examination. There is no visible area of trauma nor is there any obvious mass or tumor. Results Last Vital Signs Temp 97.0 F L 06/14/23 10:59 Pulse 94 H 06/14/23 10:59 Resp 16 06/14/23 10:59 BP 114/62 06/14/23 10:59 Pulse Ox 96 06/14/23 12:06 Labs 06/14/23 06:15 06/14/23 06:15 Labs: Laboratory Results - last 24 hr 06/13/23 06/13/23 06/13/23 04:20 14:50 16:15 WBC RBC Hgb Hct MCV MCH MCHC RDW Plt Count MPV Immature Gran % Neutrophils % Lymphocytes % Monocytes % Eosinophils % Basophils % Nucleated RBC % Absolute Neutrophils Absolute Lymphocytes Absolute Monocytes Absolute Eosinophils Absolute Basophils Sodium Potassium Chloride Carbon Dioxide Anion Gap BUN Creatinine Est GFR (CKD-EPI 2020) Glucose Calcium Creatine Kinase 1388 H C-Reactive Protein COVID-19 Source Nasopharynx SARS-CoV-2 (PCR) Negative Influenza Type A (PCR) Negative Influenza Type B (PCR) Negative RSV (PCR) Negative MRSA (TEM-PCR) Negative 06/14/23 06:15 WBC 7.54 RBC 5.07 Hgb 14.5 Hct 47.0 MCV 93 MCH 28.6 MCHC 30.9 L RDW 15.0 H Plt Count 205 MPV 10.5 Immature Gran % 0.4 Neutrophils % 75.6 Lymphocytes % 10.3 Monocytes % 7.6 Eosinophils % 5.6 Basophils % 0.5 Nucleated RBC % 0.0 Absolute Neutrophils 5.70 Absolute Lymphocytes 0.78 L Absolute Monocytes 0.57 Absolute Eosinophils 0.42 Absolute Basophils 0.04 Sodium 138 Potassium 4.5 Chloride 102 Carbon Dioxide 30.2 Anion Gap 5.8 BUN 14 Creatinine 0.7 Est GFR (CKD-EPI 2020) 100.37 Glucose 85 Calcium 8.5 Creatine Kinase 825 H C-Reactive Protein 3.42 H COVID-19 Source SARS-CoV-2 (PCR) Influenza Type A (PCR) Influenza Type B (PCR) RSV (PCR) MRSA (TEM-PCR)
--- NOTE | 2023-06-14 14:45 | PGE_ITS ---
Date of Service Date of service: 06/14/23 Time of Service: 14:45 Assessment and Plan Assessment and plan (1) Sepsis: Start date: 06/12/23 Status: Acute Assessment and plan: patient presented w/ sx of sepsis w/ tachycardia, hypotension, leukocytosis and signs of infection (cellulitis of chest wall and lymphadenitis) no elevated lactate or procalcitonin. Patient has responded well to iv fluids, antibiotics and antipyretics. He remains afebrile and his leukocytosis has resolved. He needs further evaluation of the right axillary adenopathy w/ further imaging of the right axilla and arm. he needs US of the right arm d/t the edema. I think he has lymphedema of the right arm either from a chronic hidadrenitis or he could be harboring a cancer. Continue Ancef as this is likely a Strep infection. Await blood cultures before switching him to oral antibiotics and I will discuss w/ radiologist tomorrow as to best imaging study of the right chest wall and right upper arm and axilla. I will also get venous US of the right arm to rule out DVT. Qualifiers: Sepsis type: sepsis due to unspecified organism Sepsis acute organ dysfunction status: without acute organ dysfunction Qualified Code(s): A41.9 - Sepsis, unspecified organism (2) Cellulitis: Start date: 06/12/23 Status: Acute Assessment and plan: as above. improving on antibiotics. CRP down to 3.42 from 6.12 and WBC now normal. Redness is improving. Qualifiers: Site of cellulitis: extremity Site of cellulitis of extremity: upper extremity Laterality: right Qualified Code(s): L03.113 - Cellulitis of right upper limb (3) Traumatic rhabdomyolysis: Start date: 06/12/23 Status: Acute Assessment and plan: CK improving, now down to 825 from high of 1814. I will dc iv fluids at this point. Qualifiers: Encounter type: initial encounter Qualified Code(s): T79.6XXA - Traumatic ischemia of muscle, initial encounter (4) Hyperglycemia due to type 2 diabetes mellitus: Status: Chronic Assessment and plan: glucose levels of 75 and 85 today. currently on low dose insulin sensitive sliding scale Novolog. Qualifiers: Diabetes mellitus laborer marine terminal insulin use: without laborer marine terminal use Qualified Code(s): E11.65 - Type 2 diabetes mellitus with hyperglycemia (5) Ulcer of left foot with fat layer exposed: Status: Acute Assessment and plan: consult wound care to continue outpatient treaments. (6) Venous insufficiency of both lower extremities: Status: Acute (7) Peripheral neuropathy: Status: Acute (8) BPH (benign prostatic hyperplasia): Status: Chronic Qualifiers: Lower urinary tract symptom presence: symptoms present (9) TANI (obstructive sleep apnea): Status: Chronic Assessment and plan: patient had prior workup w/ [facility] in [facility] and has CPAP but it was recalled and he declines to have another one. (10) Opacity of lung on imaging study: Status: Acute Assessment and plan: no clinical sx of pneumonia; will need follow up imaging when antibiotics are completed. Subjective Subjective Interval history since last seen: Gilberto now tells me that the redness in his right axilla and chest would come and go and has been doing so for about 4 yrs. He says that he thought initially it was the soap he was using and may be allergic to it. Then he thought that this was a chronic infection like the acne he has had on his face for years. Overall he feels better today. No fevers overnight. Blood cultures so far are no growth to date at 24 hr. Urine culture also is negative. His MRSA screen was negative. I have stopped his Vancomycin and Cefepime in favor of Ancef. Exam Narrative Exam Narrative: Gilberto is sitting up in his chair watching TV, no acute distress, alert and oriented Chest wall and proximal humerus and axilla is red and the proximal humerus is edematous. However the redness over the chest wall and arm have diminshed in intensity, he still has palpable axillary adenopathy, no open sores. Palpation of his right breast did not reveal any masses, nodules nor any nipple discharge. Objective Last Vital Signs Temp 36.1 C L 06/14/23 10:59 Pulse 94 H 06/14/23 10:59 Resp 16 06/14/23 10:59 BP 114/62 06/14/23 10:59 Pulse Ox 96 06/14/23 12:06 Laboratory Results - last 24 hr 06/13/23 06/13/23 06/13/23 04:20 14:50 16:15 WBC RBC Hgb Hct MCV MCH MCHC RDW Plt Count MPV Immature Gran % Neutrophils % Lymphocytes % Monocytes % Eosinophils % Basophils % Nucleated RBC % Absolute Neutrophils Absolute Lymphocytes Absolute Monocytes Absolute Eosinophils Absolute Basophils Sodium Potassium Chloride Carbon Dioxide Anion Gap BUN Creatinine Est GFR (CKD-EPI 2020) Glucose Calcium Creatine Kinase 1388 H C-Reactive Protein COVID-19 Source Nasopharynx SARS-CoV-2 (PCR) Negative Influenza Type A (PCR) Negative Influenza Type B (PCR) Negative RSV (PCR) Negative MRSA (TEM-PCR) Negative 06/14/23 06:15 WBC 7.54 RBC 5.07 Hgb 14.5 Hct 47.0 MCV 93 MCH 28.6 MCHC 30.9 L RDW 15.0 H Plt Count 205 MPV 10.5 Immature Gran % 0.4 Neutrophils % 75.6 Lymphocytes % 10.3 Monocytes % 7.6 Eosinophils % 5.6 Basophils % 0.5 Nucleated RBC % 0.0 Absolute Neutrophils 5.70 Absolute Lymphocytes 0.78 L Absolute Monocytes 0.57 Absolute Eosinophils 0.42 Absolute Basophils 0.04 Sodium 138 Potassium 4.5 Chloride 102 Carbon Dioxide 30.2 Anion Gap 5.8 BUN 14 Creatinine 0.7 Est GFR (CKD-EPI 2020) 100.37 Glucose 85 Calcium 8.5 Creatine Kinase 825 H C-Reactive Protein 3.42 H COVID-19 Source SARS-CoV-2 (PCR) Influenza Type A (PCR) Influenza Type B (PCR) RSV (PCR) MRSA (TEM-PCR) Reviewed Pertinent PMH: Yes Objective Narrative Objective Narrative: CT of chest was reviewed w/ Dr. Zaki Lehman, the patient has marked adenopathy in the right axilla w/ one particular LN measuring 1.9 cm. Time Spent with Patient Time Spent with Patient: 25-34 minutes Time was spent: preparing to see the patient(eg.review tests), ordering medications,tests, procedures, referring, communicating with other health manager intensive care, indepentently interpreting results, counseling the patient and care coordination
[2023-06-14 15:02] VITALS: BP 114/71; PULSE 93; RESP 17; TEMP 36; O2SAT 92
[2023-06-14] MEDS: Nystatin OINT 15 GM TUBE TP ×2 (15:53→22:28)
[2023-06-14 19:00] VITALS: BP 126/88; PULSE 95; RESP 16; TEMP 36.5; O2SAT 95
[2023-06-15] VITALS (7 sets, daily range): BP systolic 125–139; BP diastolic 75–87; PULSE 96–103; RESP 16–18; TEMP 36.1–36.4; O2SAT 86–95
--- NOTE | 2023-06-15 | DI.US_ITS ---
Exam(s) US UPPER EXTREMITY VENOUS RT EXAM: US UPPER EXTREMITY VENOUS RT CLINICAL HISTORY: right arm swelling and pain. TECHNIQUE: Ultrasound examination of the right upper extremity venous system(s) is performed using g rayscale, color-flow, and spectral Doppler analysis. COMPARISON: No exams were available for comparison FINDINGS: The right internal jugular, axillary, subclavian, cephalic, basilic, brachial, radial, and ulnar vein s are patent without evidence of thrombosis. No superficial varicosities. No localized fluid collec tion or hematoma. IMPRESSION: Negative right lower extremity ultrasound. No DVT. DATA REPOSITORY:
[2023-06-15] MEDS: ceFAZolin 2 GM/50 ML BAG IVPB ×2 (03:00→12:09)
[2023-06-15 06:36] LABS: Abs Immature Grans 0.02 10^3/uL (0.0-0.06); Absolute Basophil Count 0.03 10^3/uL (0.0-0.2); Absolute Eosinophil Count 0.32 10^3/uL (0.0-0.7); Absolute Lymphocyte Count 1.03 10^3/uL (1.2-3.4); Absolute Monocyte Count 0.64 10^3/uL (0.1-0.8); Absolute Neutrophil Count 5.16 10^3/uL (1.2-6.7); Basophils % 0.4; Eosinophils % 4.4; HCT 46.9 % (40.0-50.0); HGB 14.9 g/dL (13.5-17.5); Immature Grans % 0.3; Lymphocytes % 14.3; MCH 28.7 pg (27.0-33.0); MCHC 31.8 % (32.0-36.0); MCV 90 fL (80-95); MPV 10.6 fL (8.0-11.0); Monocytes % 8.9; Neutrophils % 71.7; Platelet Count 218 10^3/uL (130-400); RDW 14.6 % (11.8-14.1); RDW-SD 48.6 fL
[2023-06-15 07:00] LABS: Anion Gap 6.8 mmol/L (3-11); BUN 14 mg/dL (7-18); C-Reactive Protein 2.52 mg/dL (<or=0.5); CO2 30.2 mmol/L (21.0-32.0); CREATININE 0.7 mg/dL (0.70-1.30); Calcium 8.9 mg/dL (8.5-10.1); Chloride 101 mmol/L (98-107); Creatine Kinase 332 U/L (39-308); Estimated GFR 100.37 (mL/min/1.73m2); Glucose 96 mg/dL (74-106); Potassium 4.2 mmol/L (3.5-5.1); Sodium 138 mmol/L (136-145)
[2023-06-15] MEDS: Enoxaparin 40 MG/0.4 ML SYR SC (07:26)
[2023-06-15] MEDS: Nystatin OINT 15 GM TUBE TP (07:27)
[2023-06-15] MEDS: Cholecalciferol (Vitamin D3) 1,000 UNIT TAB 3000 UNITS PO (07:27)
[2023-06-15] MEDS: Lisinopril 20 MG TAB PO (07:28)
[2023-06-15] MEDS: Finasteride 5 MG TAB PO (07:28)
[2023-06-15] MEDS: Amitriptyline 25 MG TAB PO (07:28)
[2023-06-15] MEDS: Tamsulosin 0.4 MG CAPCR PO (07:28)
[2023-06-15] MEDS: Atorvastatin 20 MG TAB PO (07:28)
[2023-06-15] MEDS: Aspirin 81 MG CHEW PO (07:28)
[2023-06-15] MEDS: Normal Saline Flush 10 ML SYR IVP (07:28)
[2023-06-15] MEDS: Omeprazole 20 MG CAPCR PO (07:28)
--- NOTE | 2023-06-15 09:47 | W.PM.PROGNOT ---
Date of Service Date of service: 06/15/23 Time of Service: 09:47 Assessment and Plan Assessment and plan (1) Cellulitis: Status: Acute Assessment and plan: bacteria (staph/strep) vs yeast -ancef and mycostatin. Most likely improved because of the Mycostatin -no hidroadnitis -1.8cm nodule repeat CT in 3m time f/u w/ PCP as outpt to repeat low dose screening chest CT in 3 months time Continue supportive care DC when medically stable per hospitalist Qualifiers: Laterality: right Site of cellulitis: extremity Site of cellulitis of extremity: upper extremity Qualified Code(s): L03.113 - Cellulitis of right upper limb (2) Glaucoma: Status: Chronic (3) BPH (benign prostatic hyperplasia): Status: Chronic Qualifiers: Lower urinary tract symptom presence: symptoms present (4) Hyperglycemia due to type 2 diabetes mellitus: Status: Chronic Qualifiers: Diabetes mellitus long-term insulin use: without long-term use Qualified Code(s): E11.65 - Type 2 diabetes mellitus with hyperglycemia (5) Hyperlipidemia: Status: Acute (6) Atherosclerosis of [place] arteries of left leg with ulceration of other part of foot: Status: Acute (7) Atherosclerosis of [place] arteries of right leg with ulceration of unspecified site: Status: Acute (8) Venous insufficiency of both lower extremities: Status: Acute (9) Hypertension: Status: Chronic (10) Peripheral artery disease: Status: Acute (11) Obese: Status: Chronic (12) Pulmonary nodule 1 cm or greater in diameter: Status: Acute Assessment and plan: Repeat low-dose screening chest CT in September 2023 Subjective Subjective Interval history since last seen: Pt is doing well. pt notes pain and itching in the axillae is improved. Pt has had this rash for some time. There are not any open areas or areas of abscess. There is a homogenous erthymea in each axillae and in the the breast bilaterally. Pt notes it is improved. It has the appearance of chronic yeast infection of the soft tissue. Pt is DM. BMI is 46. Exam Narrative Exam Narrative: see HPI Objective Last Vital Signs Temp 36.3 C L 06/15/23 07:43 Pulse 96 H 06/15/23 07:43 Resp 17 06/15/23 07:43 BP 125/76 06/15/23 07:43 Pulse Ox 92 06/15/23 07:45 Laboratory Results - last 24 hr 06/15/23 06:14 WBC 7.20 RBC 5.20 Hgb 14.9 Hct 46.9 MCV 90 MCH 28.7 MCHC 31.8 L RDW 14.6 H Plt Count 218 MPV 10.6 Immature Gran % 0.3 Neutrophils % 71.7 Lymphocytes % 14.3 Monocytes % 8.9 Eosinophils % 4.4 Basophils % 0.4 Nucleated RBC % 0.0 Absolute Neutrophils 5.16 Absolute Lymphocytes 1.03 L Absolute Monocytes 0.64 Absolute Eosinophils 0.32 Absolute Basophils 0.03 Sodium 138 Potassium 4.2 Chloride 101 Carbon Dioxide 30.2 Anion Gap 6.8 BUN 14 Creatinine 0.7 Est GFR (CKD-EPI 2020) 100.37 Glucose 96 Calcium 8.9 Creatine Kinase 332 H C-Reactive Protein 2.52 H Time Spent with Patient Time Spent with Patient: <25 minutes Time was spent: preparing to see the patient(eg.review tests), obtaining and/or reviewing separately otained hiistory, ordering medications,tests, procedures, referring, communicating with other health home care specialist, indepentently interpreting results, counseling the patient and care coordination
--- NOTE | 2023-06-15 09:58 | PDOC.CMPRO ---
Date of service: 06/15/23 Time of Service: 09:58 Care Management Progress Note Progress Note Text Progress Note Text: S/O: A:Gilberto is a 67 year old man admitted on 06/12/23 with sepsis P:Anticipate Gilberto will be discharged home with no new services. He will follow up with his community providers and plan of care and transport with family. CM will follow and continue to assess for discharge needs. SDOH(Care Management) Screening Will the Patient Participate in the Screening?: Unable to obtain
--- NOTE | 2023-06-15 12:59 | DSE_ITS ---
Date of service: 06/15/23 Time of Service: 12:59 DS: Diagnosis Discharge Diagnosis (1) Cellulitis: Status: Acute Asessment and Plan: Patient presented w/ symptoms suggestive of sepsis and was found to have erythema and induration of right anterior chest wall, right axilla and proximal humerus. Blood cultures were obtained and came back no growth, CT chest was done and demonstrated right axillary adenopathy but also incidental finding of 1.8 cm rounded focus in the right upper lung apex. A follow up CT of chest should be performed including PET/CT. Patient was begun on Vancomycin and cefepime but was changed to Ancef. Leukocytosis resolved and redness, swelling and pain improved. Patient was discharged on a course of keflex. (2) Pulmonary nodule 1 cm or greater in diameter: Status: Acute Asessment and Plan: patient will need referral to pulmonary or PCP can follow this up w/ either PET/CT now or repeat study in 3 months to assess stability of nodule. (3) Lymphedema: Status: Acute Asessment and Plan: venous duplex study was negative for dvt of the right arm (4) Traumatic rhabdomyolysis: Status: Resolved Asessment and Plan: patient had fall at home prior to admission w/ no LOC. CK on admission was elevated at 988 and peaked at 1814 and came down to 332 after iv fluid hydration. (5) Ulcer of left foot with fat layer exposed: Status: Acute Asessment and Plan: chronic foot ulcer; patient to follow up outpatient wound care. x-ray of left foot did not show any evidence for osteomyelitis Discharge Plan Disposition Patient Disposition: Home Condition: Improving Discharge Details Reason For Visit: Sepsis syndrome, Cellulitis right armpit, Admit Date/Time: 06/12/23 22:14 Admit Provider: Gavin Cr Attending Provider: Gavin Cr Primary Care Provider: JOSE FRANCISCO ARCE Home Meds and New Rx's Prescriptions: New cephalexin 500 mg capsule 500 mg PO QID 10 Days Qty: 40 0RF Continued olmesartan [Benicar] 20 mg tablet 20 mg PO DAILY omeprazole 20 mg capsule,delayed release(DR/EC) 20 mg PO DAILY finasteride 5 mg tablet 5 mg PO DAILY furosemide 40 mg tablet 40 mg PO DAILY amitriptyline 25 mg tablet 25 mg PO DAILY aspirin 81 mg tablet,chewable 81 mg PO DAILY tamsulosin 0.4 mg capsule 0.4 mg PO DAILY atorvastatin 20 mg tablet 20 mg PO DAILY vitamin E mixed 1,000 unit capsule PO acetaminophen 500 mg capsule 500 mg PO Q6H PRN cholecalciferol (vitamin D3) 75 mcg (3,000 unit) tablet 75 mcg PO DAILY Discontinued ciprofloxacin HCl [Cipro] 500 mg tablet 500 mg PO BID Qty: 28 0RF clindamycin HCl 300 mg capsule 300 mg PO TID 10 Days Qty: 30 0RF Discharge Instructions Instructions: Cephalexin (By mouth), Cellulitis (DC) Additional Instructions: You were treated for cellulitis of your right axilla and chest wall and were found to have swelling of the right arm d/t enlarged lymph noded in the right axilla. You should finish your antibiotics (cephalexin 500 mg 4x per day) and follow up w/ your primary care provider. As part of your workup you were found to have a lung nodule in the right upper lobe measuring 1.8 cm (about 3/4 inch) and this needs follow imaging and possible biopsy. I recommend that your primary care provider refer you to pulmonary services and obtain a PET/CT scan of the chest to be sure that this is not a malignancy (cancer). You also have significantly enlarged lymph noded in your right axilla (armpit) which is likely d/t the chronic skin infection. However, if the lymph noded due not decrease to normal size over next few weeks after completion of the antibiotic, then this should be biopsied to rule out lymphoma or other cancer. As part of your workup you were given intravenous fluids to rehydrate you and treat you for a mild rhabdomyolysis (this is an elevation of the skeletal muscle enzymes caused by muscle injury), we believe you sustained this from your fall, and the CK muscle enzymes have improved and returned to near normal levels now. Try to drink plenty of fluids to prevent dehydration (6 to 8 glasses of 8 ounces of water per day). Stand Alone Forms: Nursing Discharge Form Referrals: JOSE FRANCISCO ARCE NP [Primary Care Provider] - 06/24/23 9:00 am (needs follow up in the next 1 to 2 weeks; needs follow up evaluation of RUL lung 1.8 cm lung nodule) Activity:: Activity as Tolerated Equipment/Supplies:: No Equipment Needed Diet:: Normal Diet Discharge Orders Discharge Orders: Discharge Order (Routine); Ordered 06/15/23 Ordered By: Finesse Rader Discharge Data Discharge Date/Time-TO BE ENTERED AT DEPARTURE: 06/15/23 14:55 DS: Summary Time Spent with Patient providing and/or coordinating discharge services: Greater than 30 minutes Status at Discharge Functional status at discharge: uses cane/walker Overall status at discharge: patient is progressing back to baseline Mental Status: mental status grossly normal Speech and Movement: speech and movement normal Mood: congruent mood Affect: normal affect Quality:SDOH Health Related Social Needs: No Data to Display Exam Psych Mental Status: mental status grossly normal Speech and Movement: speech and movement normal Mood: congruent mood Affect: normal affect DS: Data Vitals/I&O Vitals and I&O: Vital Signs Temperature 36.4 C L 06/15/23 10:56 Temperature Source Tympanic 06/15/23 10:56 Pulse 96 H 06/15/23 10:56 Pulse Rhythm Irregular 06/15/23 07:43 Pulse 89 06/13/23 16:14 Respiratory Rate 18 06/15/23 10:56 Respiratory Effort Normal, Non-Labored 06/15/23 07:43 Respiratory Depth Normal 06/15/23 07:43 Respiratory Pattern Normal 06/15/23 07:43 Blood Pressure 139/87 06/15/23 10:56 Blood Pressure Mean 75 06/13/23 16:14 Blood Pressure Position Supine 06/12/23 23:00 Pulse Oximetry 91 L 06/15/23 11:48 Oxygen Delivery Method Nasal Cannula 06/15/23 11:48 Oxygen Flow Rate 1 06/15/23 11:48 Pain Level 5 06/15/23 10:56 Comment RN Notified 06/13/23 23:42 Comment 2L via NC 06/13/23 05:17 Intake & Output 06/14/23 06/15/23 06/15/23 23:59 11:59 23:59 Intake Total 560 / 1010 290 / 290 Output Total 3300 / 6100 4150 / 4450 300 / 4450 Balance -2740 / -5090 -3860 / -4160 -300 / -4160 Intake: IV 310 / 760 50 / 50 Oral 250 / 250 240 / 240 Output: Urine 3300 / 6100 4150 / 4450 300 / 4450 Other: Urine Color Yellow Light Mary Light Mary Urine Appearance Clear Sediment Sediment Mucous Threads Data Completed and Pending Labs on day of discharge: Labs from last 24 hours 06/15/23 06:14 WBC 7.20 RBC 5.20 Hgb 14.9 Hct 46.9 MCV 90 MCH 28.7 MCHC 31.8 L RDW 14.6 H Plt Count 218 MPV 10.6 Immature Gran % 0.3 Neutrophils % 71.7 Lymphocytes % 14.3 Monocytes % 8.9 Eosinophils % 4.4 Basophils % 0.4 Nucleated RBC % 0.0 Absolute Neutrophils 5.16 Absolute Lymphocytes 1.03 L Absolute Monocytes 0.64 Absolute Eosinophils 0.32 Absolute Basophils 0.03 Sodium 138 Potassium 4.2 Chloride 101 Carbon Dioxide 30.2 Anion Gap 6.8 BUN 14 Creatinine 0.7 Est GFR (CKD-EPI 2020) 100.37 Glucose 96 Calcium 8.9 Creatine Kinase 332 H C-Reactive Protein 2.52 H Preliminary micro results at discharge 06/12/23 19:15 Blood Culture - Preliminary Blood NO GROWTH 48 HOURS 06/12/23 18:58 Blood Culture - Preliminary Blood NO GROWTH 48 HOURS PFSH All Active Problems (Updated 06/16/23 @ 12:43 by Anamaria Wilson DO) Pulmonary nodule 1 cm or greater in diameter (Acute) Repeat CT in September 2023 Obese (Chronic) Opacity of lung on imaging study (Acute) Pneumonia (Acute) Hyperglycemia due to type 2 diabetes mellitus (Chronic) Cellulitis (Acute) Non-compliant patient (Acute) Ulcer of left foot with fat layer exposed (Acute) Lymphedema (Acute) Venous insufficiency of both lower extremities (Acute) Atherosclerosis of [place] arteries of right leg with ulceration of unspecified site (Acute) Atherosclerosis of [place] arteries of left leg with ulceration of other part of foot (Acute) Callus of foot (Acute) Localized edema (Acute) Neuropathy (Acute) Ulcer of other part of foot (Acute) Corns and callosities (Acute) Nail dystrophy (Acute) Glaucoma (Chronic) BPH (benign prostatic hyperplasia) (Chronic) TANI (obstructive sleep apnea) (Chronic) Hyperlipidemia (Acute) Peripheral artery disease (Acute) Peripheral neuropathy (Acute) Hypertension (Chronic) Medical History (Updated 06/16/23 @ 12:43 by Anamaria Wilson DO) Frostbite bi-lat feet, related to exposure at work ([id number]) Congestive heart failure (CHF) Amputated toe of right foot 1st toe 03/2009 Amputated toe of left foot 1st toe 2008 Social History Smoking/Tobacco Use Status: Never Tobacco: How many years used: 25 Smoking risk assessment performed?: Yes Alcohol Intake: never Drug use: Never Substance use type: does not use Housing: apartment Do you feel safe at home: Yes Do you feel safe in your relationship?: Yes Time Spent with Patient Time Spent with Patient: <45 minutes Time was spent: preparing to see the patient(eg.review tests), obtaining and/or reviewing separately otained hiistory, ordering medications,tests, procedures, referring, communicating with other health director of career resources, indepentently interpreting results, counseling the patient and care coordination
--- NOTE | 2023-06-15 16:04 | PDOC.CMDIS ---
Date of service: 06/15/23 Time of Service: 16:04 LACE Index Scoring Tool Questions: Length of Stay (in days): 3 Was the patient admitted via the E.D.?: Yes Comorbidities: PVD and Congestive Heart Failure E.D. Visits: 2 Answers: Total Score: 11 Risk of Readmission: High Risk Care Management Discharge Plan Reason for Hospitalization: Sepsis syndrome, Cellulitis right armpit Discharge Plan: Gilberto will be discharged home with no new services. He will follow up with his PCP and plan of care and [facility] coordinated by CM. Patient/Family Education Needs: Review discharge instructions, activity, limitations, follow up plan, discuss Ask Me Three. Services Needed at Discharge: Transportation SDOH Health Related Social Needs: No Data to Display
[2023-06-16 11:49] LABS: Myoglobin, U 79 mcg/L (<=65)
== END 2023-06-15 14:55 | disposition home or self-care (01) | DRG 871 ==
LOC: ER 22:33 → MS 06-15 11:33 → ICU 06-15 11:34
PROVIDERS: Internal Medicine; Admitting Provider Family Medicine; Emergency Provider Physician Assistant; PCP Nurse Practitioner Family; Visit Provider Family Medicine
DX: A41.9 Sepsis, unspecified organism (principal); J18.9 Pneumonia, unspecified organism; L03.113 Cellulitis of right upper limb; Z68.41 Body mass index [BMI] 40.0-44.9, adult; L97.422 Non-pressure chronic ulcer of left heel and midfoot with fat layer exposed; B37.89 Other sites of candidiasis; I87.2 Venous insufficiency (chronic) (peripheral); G62.9 Polyneuropathy, unspecified; G47.33 Obstructive sleep apnea (adult) (pediatric); R91.8 Other nonspecific abnormal finding of lung field; E78.5 Hyperlipidemia, unspecified; I70.245 Atherosclerosis of native arteries of left leg with ulceration of other part of foot; I10 Essential (primary) hypertension; E66.9 Obesity, unspecified; T79.6XXA Traumatic ischemia of muscle, initial encounter; E11.65 Type 2 diabetes mellitus with hyperglycemia; W19.XXXA Unspecified fall, initial encounter; Z66 Do not resuscitate; R60.0 Localized edema; H40.9 Unspecified glaucoma; Z89.412 Acquired absence of left great toe; Z89.411 Acquired absence of right great toe; Z91.199 Patient's noncompliance with other medical treatment and regimen due to unspecified reason; Z87.891 Personal history of nicotine dependence; I89.0 Lymphedema, not elsewhere classified; E11.621 Type 2 diabetes mellitus with foot ulcer; E11.42 Type 2 diabetes mellitus with diabetic polyneuropathy; N40.1 Benign prostatic hyperplasia with lower urinary tract symptoms; I70.235 Atherosclerosis of native arteries of right leg with ulceration of other part of foot
CPT/HCPCS: 00123; 36415; 51702; 71275; 80048; 80053; 82550; 82805; 83690; 84145; 85027; 85652; 87040; 87637; 87641; 96365; 96366; 99223; 99232; 99291; J1650; 73630; 80202; 81003; 81015; 82140; 83036; 83605; 83735; 83874; 83880; 84484; 85025; 85379; 86140; 87086; 93971; 94760; 99233; J0690; J0692; J1815; J3370; J3372; J3490

== ENCOUNTER → 2023-06-23 11:09 | Outpatient (BNVA) | payer MEDICARE, SELFPAY | PROVIDERS: PCP Nurse Practitioner Family; Referring Provider Nurse Practitioner Family; Visit Provider Podiatrist | DX: L97.522 Non-pressure chronic ulcer of other part of left foot with fat layer exposed; I70.239 Atherosclerosis of native arteries of right leg with ulceration of unspecified site; G62.9 Polyneuropathy, unspecified; I87.2 Venous insufficiency (chronic) (peripheral); I89.0 Lymphedema, not elsewhere classified; Z91.199 Patient's noncompliance with other medical treatment and regimen due to unspecified reason; L03.113 Cellulitis of right upper limb | CPT/HCPCS: 11042; 29580; 29850 ==

== ENCOUNTER → 2023-07-15 12:04 | Outpatient (BNVA) | payer MEDICARE, SELFPAY | PROVIDERS: PCP Nurse Practitioner Family; Referring Provider Nurse Practitioner Family; Visit Provider Podiatrist | DX: L97.522 Non-pressure chronic ulcer of other part of left foot with fat layer exposed; I70.239 Atherosclerosis of native arteries of right leg with ulceration of unspecified site; G62.9 Polyneuropathy, unspecified; I87.2 Venous insufficiency (chronic) (peripheral); I89.0 Lymphedema, not elsewhere classified; Z91.199 Patient's noncompliance with other medical treatment and regimen due to unspecified reason; L03.113 Cellulitis of right upper limb | CPT/HCPCS: 11042; 29580; 97597; 97598; 29850 ==

== ENCOUNTER → 2023-08-13 10:42 | Outpatient (BNVA) | payer MEDICARE, SELFPAY | PROVIDERS: PCP Nurse Practitioner Family; Referring Provider Nurse Practitioner Family; Visit Provider Podiatrist | DX: L97.522 Non-pressure chronic ulcer of other part of left foot with fat layer exposed; I70.239 Atherosclerosis of native arteries of right leg with ulceration of unspecified site; G62.9 Polyneuropathy, unspecified; I87.2 Venous insufficiency (chronic) (peripheral); I89.0 Lymphedema, not elsewhere classified; Z91.199 Patient's noncompliance with other medical treatment and regimen due to unspecified reason; L03.113 Cellulitis of right upper limb | CPT/HCPCS: 11042; 29580; Q4196; 29850 ==

== ENCOUNTER → 2023-09-10 10:00 | Outpatient (BNVA) | payer MEDICARE, SELFPAY | PROVIDERS: PCP Nurse Practitioner Family; Referring Provider Nurse Practitioner Family; Visit Provider Podiatrist | DX: Z51.89 Encounter for other specified aftercare (principal); L97.522 Non-pressure chronic ulcer of other part of left foot with fat layer exposed; I70.238 Atherosclerosis of native arteries of right leg with ulceration of other part of lower leg; G62.9 Polyneuropathy, unspecified; I87.2 Venous insufficiency (chronic) (peripheral); I89.0 Lymphedema, not elsewhere classified; Z91.199 Patient's noncompliance with other medical treatment and regimen due to unspecified reason; L03.113 Cellulitis of right upper limb | CPT/HCPCS: 11042; 15002; 15275; 29581; Q4196 ==

== ENCOUNTER → 2023-10-07 12:58 | Outpatient (BNVA) | payer MEDICARE, SELFPAY | PROVIDERS: PCP Nurse Practitioner Family; Referring Provider Nurse Practitioner Family; Visit Provider Podiatrist | DX: L97.522 Non-pressure chronic ulcer of other part of left foot with fat layer exposed; G62.9 Polyneuropathy, unspecified; I87.2 Venous insufficiency (chronic) (peripheral); I89.0 Lymphedema, not elsewhere classified; Z91.199 Patient's noncompliance with other medical treatment and regimen due to unspecified reason; I70.232 Atherosclerosis of native arteries of right leg with ulceration of calf | CPT/HCPCS: 11042; 29581 ==

== ENCOUNTER → 2023-11-04 10:44 | Outpatient (BNVA) | payer MEDICARE, SELFPAY | PROVIDERS: PCP Nurse Practitioner Family; Referring Provider Nurse Practitioner Family; Visit Provider Podiatrist | DX: L97.522 Non-pressure chronic ulcer of other part of left foot with fat layer exposed; G62.9 Polyneuropathy, unspecified; I87.2 Venous insufficiency (chronic) (peripheral); I89.0 Lymphedema, not elsewhere classified; Z91.199 Patient's noncompliance with other medical treatment and regimen due to unspecified reason; L03.115 Cellulitis of right lower limb; L84 Corns and callosities; B07.0 Plantar wart; I70.234 Atherosclerosis of native arteries of right leg with ulceration of heel and midfoot | CPT/HCPCS: 11042; 17110 ==

== ENCOUNTER → 2023-12-09 11:06 | Outpatient (BNVA) | payer MEDICARE, SELFPAY | PROVIDERS: PCP Nurse Practitioner Family; Referring Provider Nurse Practitioner Family; Visit Provider Podiatrist | DX: L97.522 Non-pressure chronic ulcer of other part of left foot with fat layer exposed (principal); I70.234 Atherosclerosis of native arteries of right leg with ulceration of heel and midfoot; G62.9 Polyneuropathy, unspecified; I87.2 Venous insufficiency (chronic) (peripheral); I89.0 Lymphedema, not elsewhere classified; L03.113 Cellulitis of right upper limb; L84 Corns and callosities; B07.0 Plantar wart; Z91.199 Patient's noncompliance with other medical treatment and regimen due to unspecified reason | CPT/HCPCS: 11042 ==

== ENCOUNTER → 2024-01-05 13:41 | Outpatient (BNVA) | payer MEDICARE, SELFPAY | PROVIDERS: PCP Nurse Practitioner Family; Referring Provider Nurse Practitioner Family; Visit Provider Podiatrist | DX: L97.522 Non-pressure chronic ulcer of other part of left foot with fat layer exposed (principal); I70.234 Atherosclerosis of native arteries of right leg with ulceration of heel and midfoot; G62.9 Polyneuropathy, unspecified; I87.2 Venous insufficiency (chronic) (peripheral); I89.0 Lymphedema, not elsewhere classified; Z91.199 Patient's noncompliance with other medical treatment and regimen due to unspecified reason; L84 Corns and callosities; B07.0 Plantar wart | CPT/HCPCS: 11042; 29581 ==

== ENCOUNTER → 2024-02-09 14:49 | Outpatient (BNVA) | payer MEDICARE, SELFPAY | PROVIDERS: PCP Nurse Practitioner Family; Referring Provider Nurse Practitioner Family; Visit Provider Podiatrist | DX: Z51.89 Encounter for other specified aftercare (principal); L97.522 Non-pressure chronic ulcer of other part of left foot with fat layer exposed; I70.239 Atherosclerosis of native arteries of right leg with ulceration of unspecified site; G62.9 Polyneuropathy, unspecified; I87.2 Venous insufficiency (chronic) (peripheral); I89.0 Lymphedema, not elsewhere classified; L84 Corns and callosities; B07.0 Plantar wart | CPT/HCPCS: 11042; 29581 ==

== ENCOUNTER → 2024-03-03 10:01 | Outpatient (BNVA) | payer MEDICARE, SELFPAY | PROVIDERS: PCP Nurse Practitioner Family; Referring Provider Nurse Practitioner Family; Visit Provider Podiatrist | DX: Z51.89 Encounter for other specified aftercare (principal); L97.522 Non-pressure chronic ulcer of other part of left foot with fat layer exposed; L03.113 Cellulitis of right upper limb; I70.235 Atherosclerosis of native arteries of right leg with ulceration of other part of foot; G62.9 Polyneuropathy, unspecified; I87.2 Venous insufficiency (chronic) (peripheral); I89.0 Lymphedema, not elsewhere classified; Z91.199 Patient's noncompliance with other medical treatment and regimen due to unspecified reason; L84 Corns and callosities; B07.0 Plantar wart | CPT/HCPCS: 11042; 29581 ==

== ENCOUNTER → 2024-03-24 13:04 | Outpatient (BNVA) | payer MEDICARE, SELFPAY | PROVIDERS: PCP Nurse Practitioner Family; Referring Provider Nurse Practitioner Family; Visit Provider Podiatrist | DX: Z51.89 Encounter for other specified aftercare (principal); L97.522 Non-pressure chronic ulcer of other part of left foot with fat layer exposed; I70.232 Atherosclerosis of native arteries of right leg with ulceration of calf; G62.89 Other specified polyneuropathies; I87.2 Venous insufficiency (chronic) (peripheral); Z91.199 Patient's noncompliance with other medical treatment and regimen due to unspecified reason; L03.113 Cellulitis of right upper limb; L84 Corns and callosities; B07.0 Plantar wart | CPT/HCPCS: 11042; 29581; 99214 ==

== ENCOUNTER → 2024-04-21 13:29 | Outpatient (BNVA) | payer MEDICARE, SELFPAY | PROVIDERS: PCP Nurse Practitioner Family; Referring Provider Nurse Practitioner Family; Visit Provider Podiatrist | DX: Z51.89 Encounter for other specified aftercare (principal); L97.522 Non-pressure chronic ulcer of other part of left foot with fat layer exposed; L03.115 Cellulitis of right lower limb; I70.232 Atherosclerosis of native arteries of right leg with ulceration of calf; G62.9 Polyneuropathy, unspecified; I87.2 Venous insufficiency (chronic) (peripheral); Z91.199 Patient's noncompliance with other medical treatment and regimen due to unspecified reason; L84 Corns and callosities; B07.0 Plantar wart | CPT/HCPCS: 11042; 29581 ==

== ENCOUNTER → 2024-05-26 10:02 | Outpatient (BNVA) | payer MEDICARE, SELFPAY | PROVIDERS: PCP Nurse Practitioner Family; Referring Provider Nurse Practitioner Family; Visit Provider Podiatrist | DX: Z51.89 Encounter for other specified aftercare (principal); L97.522 Non-pressure chronic ulcer of other part of left foot with fat layer exposed; I70.234 Atherosclerosis of native arteries of right leg with ulceration of heel and midfoot; G62.9 Polyneuropathy, unspecified; I87.2 Venous insufficiency (chronic) (peripheral); I89.0 Lymphedema, not elsewhere classified; L03.116 Cellulitis of left lower limb; L84 Corns and callosities; B07.0 Plantar wart; L03.115 Cellulitis of right lower limb; R09.89 Other specified symptoms and signs involving the circulatory and respiratory systems; R20.8 Other disturbances of skin sensation; L65.9 Nonscarring hair loss, unspecified; R60.0 Localized edema | CPT/HCPCS: 11042; 11055; 29581 ==

== ENCOUNTER → 2024-06-30 11:06 | Outpatient (BNVA) | payer MEDICARE, SELFPAY | PROVIDERS: PCP Nurse Practitioner Family; Referring Provider Nurse Practitioner Family; Visit Provider Podiatrist | DX: Z51.89 Encounter for other specified aftercare (principal); L97.522 Non-pressure chronic ulcer of other part of left foot with fat layer exposed; G62.9 Polyneuropathy, unspecified; I87.2 Venous insufficiency (chronic) (peripheral); I89.0 Lymphedema, not elsewhere classified; Z91.199 Patient's noncompliance with other medical treatment and regimen due to unspecified reason; L03.113 Cellulitis of right upper limb; L84 Corns and callosities; B07.0 Plantar wart; I70.239 Atherosclerosis of native arteries of right leg with ulceration of unspecified site | CPT/HCPCS: 11042; 29581 ==

== ENCOUNTER 2024-07-19 13:40 | Outpatient (REF) | payer MEDICARE, SELFPAY ==
[2024-07-19 15:37] LABS: ALT 26 U/L (16-63); AST 19 U/L (15-37); Albumin 3.7 g/dL (3.4-5.0); Alkaline Phosphatase 111 U/L (46-116); Anion Gap 7.8 mmol/L (3-11); BUN 15 mg/dL (7-18); Bilirubin, Total 0.5 mg/dL (0.2-1.0); CO2 31.2 mmol/L (21.0-32.0); CREATININE 0.8 mg/dL (0.70-1.30); Calcium 9.7 mg/dL (8.5-10.1); Chloride 102 mmol/L (98-107); Glucose 105 mg/dL (74-106); Hemoglobin A1C 5.8 % (<5.7); Potassium 4.7 mmol/L (3.5-5.1); Sodium 141 mmol/L (136-145); Total Protein 8.3 g/dL (6.4-8.2)
== END 2024-07-19 13:41 | disposition home or self-care (01) ==
LOC: NCHCN 13:40
PROVIDERS: PCP Nurse Practitioner Family; Visit Provider Nurse Practitioner Family
DX: R73.03 Prediabetes (principal)
CPT/HCPCS: 80053; 83036

== ENCOUNTER → 2024-08-04 10:58 | Outpatient (BNVA) | payer MEDICARE, SELFPAY | PROVIDERS: PCP Nurse Practitioner Family; Referring Provider Nurse Practitioner Family; Visit Provider Podiatrist | DX: Z51.89 Encounter for other specified aftercare (principal); L97.522 Non-pressure chronic ulcer of other part of left foot with fat layer exposed; I70.239 Atherosclerosis of native arteries of right leg with ulceration of unspecified site; G62.9 Polyneuropathy, unspecified; I87.2 Venous insufficiency (chronic) (peripheral); I89.0 Lymphedema, not elsewhere classified; Z91.199 Patient's noncompliance with other medical treatment and regimen due to unspecified reason; L03.113 Cellulitis of right upper limb; L84 Corns and callosities; B07.0 Plantar wart | CPT/HCPCS: 11042; 29581 ==

== ENCOUNTER → 2024-09-01 11:06 | Outpatient (BNVA) | payer MEDICARE, SELFPAY | PROVIDERS: PCP Nurse Practitioner Family; Referring Provider Nurse Practitioner Family; Visit Provider Podiatrist | DX: Z51.89 Encounter for other specified aftercare (principal); I70.239 Atherosclerosis of native arteries of right leg with ulceration of unspecified site; G62.9 Polyneuropathy, unspecified; I87.2 Venous insufficiency (chronic) (peripheral); I89.0 Lymphedema, not elsewhere classified; Z91.199 Patient's noncompliance with other medical treatment and regimen due to unspecified reason; L03.113 Cellulitis of right upper limb; L84 Corns and callosities; B07.0 Plantar wart | CPT/HCPCS: 11042; 29581 ==

== ENCOUNTER → 2024-10-06 10:47 | Outpatient (BNVA) | payer MEDICARE, SELFPAY | PROVIDERS: PCP Nurse Practitioner Family; Referring Provider Nurse Practitioner Family; Visit Provider Podiatrist | DX: Z51.89 Encounter for other specified aftercare (principal); L97.522 Non-pressure chronic ulcer of other part of left foot with fat layer exposed; I70.239 Atherosclerosis of native arteries of right leg with ulceration of unspecified site; G62.9 Polyneuropathy, unspecified; I87.2 Venous insufficiency (chronic) (peripheral); I89.0 Lymphedema, not elsewhere classified; Z91.199 Patient's noncompliance with other medical treatment and regimen due to unspecified reason; L03.113 Cellulitis of right upper limb; L84 Corns and callosities; B07.0 Plantar wart; R09.89 Other specified symptoms and signs involving the circulatory and respiratory systems; R20.8 Other disturbances of skin sensation; L65.9 Nonscarring hair loss, unspecified; L85.8 Other specified epidermal thickening; L60.2 Onychogryphosis; L60.8 Other nail disorders | CPT/HCPCS: 11042; 11056; 11721 ==

== ENCOUNTER → 2024-11-07 11:04 | Outpatient (BNVA) | payer MEDICARE, SELFPAY | PROVIDERS: PCP Nurse Practitioner Family; Referring Provider Nurse Practitioner Family; Visit Provider Podiatrist | DX: Z51.89 Encounter for other specified aftercare (principal); L97.522 Non-pressure chronic ulcer of other part of left foot with fat layer exposed; I70.239 Atherosclerosis of native arteries of right leg with ulceration of unspecified site; G62.9 Polyneuropathy, unspecified; I87.2 Venous insufficiency (chronic) (peripheral); I89.0 Lymphedema, not elsewhere classified; Z91.199 Patient's noncompliance with other medical treatment and regimen due to unspecified reason; L84 Corns and callosities; B07.0 Plantar wart | CPT/HCPCS: 11042 ==

== ENCOUNTER → 2024-12-05 11:08 | Outpatient (BNVA) | payer MEDICARE, SELFPAY | PROVIDERS: PCP Nurse Practitioner Family; Referring Provider Nurse Practitioner Family; Visit Provider Podiatrist | DX: Z51.89 Encounter for other specified aftercare (principal); L97.522 Non-pressure chronic ulcer of other part of left foot with fat layer exposed; I70.239 Atherosclerosis of native arteries of right leg with ulceration of unspecified site; G62.9 Polyneuropathy, unspecified; I87.2 Venous insufficiency (chronic) (peripheral); I89.0 Lymphedema, not elsewhere classified; Z91.199 Patient's noncompliance with other medical treatment and regimen due to unspecified reason; L03.113 Cellulitis of right upper limb; L84 Corns and callosities; B07.0 Plantar wart | CPT/HCPCS: 11042 ==

== ENCOUNTER → 2025-01-03 11:07 | Outpatient (BNVA) | payer MEDICARE, SELFPAY | PROVIDERS: PCP Nurse Practitioner Family; Referring Provider Nurse Practitioner Family; Visit Provider Podiatrist | DX: Z51.89 Encounter for other specified aftercare (principal); L97.522 Non-pressure chronic ulcer of other part of left foot with fat layer exposed; I70.239 Atherosclerosis of native arteries of right leg with ulceration of unspecified site; G62.9 Polyneuropathy, unspecified; I87.2 Venous insufficiency (chronic) (peripheral); I89.0 Lymphedema, not elsewhere classified; L03.113 Cellulitis of right upper limb; L84 Corns and callosities; B07.0 Plantar wart; Z91.199 Patient's noncompliance with other medical treatment and regimen due to unspecified reason | CPT/HCPCS: 97597 ==

== ENCOUNTER → 2025-02-08 10:36 | Outpatient (BNVA) | payer MEDICARE, SELFPAY | PROVIDERS: PCP Nurse Practitioner Family; Referring Provider Nurse Practitioner Family; Visit Provider Podiatrist | DX: Z51.89 Encounter for other specified aftercare (principal); L97.522 Non-pressure chronic ulcer of other part of left foot with fat layer exposed; I70.234 Atherosclerosis of native arteries of right leg with ulceration of heel and midfoot; G62.9 Polyneuropathy, unspecified; I87.2 Venous insufficiency (chronic) (peripheral); I89.0 Lymphedema, not elsewhere classified; Z91.199 Patient's noncompliance with other medical treatment and regimen due to unspecified reason; L03.113 Cellulitis of right upper limb; L84 Corns and callosities; B07.0 Plantar wart; R09.89 Other specified symptoms and signs involving the circulatory and respiratory systems; R20.8 Other disturbances of skin sensation; L65.9 Nonscarring hair loss, unspecified; R60.0 Localized edema; L85.8 Other specified epidermal thickening; L60.2 Onychogryphosis; L60.8 Other nail disorders; M79.674 Pain in right toe(s); M79.675 Pain in left toe(s) | CPT/HCPCS: 11042; 11055; 11721; 29581 ==

== ENCOUNTER → 2025-03-08 11:09 | Outpatient (BNVA) | payer MEDICARE, SELFPAY | PROVIDERS: PCP Nurse Practitioner Family; Referring Provider Nurse Practitioner Family; Visit Provider Podiatrist | DX: Z51.89 Encounter for other specified aftercare (principal); L97.522 Non-pressure chronic ulcer of other part of left foot with fat layer exposed; L03.116 Cellulitis of left lower limb; I70.235 Atherosclerosis of native arteries of right leg with ulceration of other part of foot; G62.9 Polyneuropathy, unspecified; I89.0 Lymphedema, not elsewhere classified; L84 Corns and callosities; B07.0 Plantar wart; Z91.199 Patient's noncompliance with other medical treatment and regimen due to unspecified reason | CPT/HCPCS: 11042 ==

== ENCOUNTER 2025-03-08 11:36 | Outpatient (REF) | payer MEDICARE, SELFPAY | END 2025-03-08 11:37 | disposition home or self-care (01) | LOC: LBN 11:36 | PROVIDERS: PCP Nurse Practitioner Family; Visit Provider Podiatrist | DX: L97.522 Non-pressure chronic ulcer of other part of left foot with fat layer exposed (principal) | CPT/HCPCS: 87077; 87070; 87075; 87186; 87205 ==

== ENCOUNTER → 2025-04-05 11:11 | Outpatient (BNVA) | payer MEDICARE, SELFPAY | PROVIDERS: PCP Nurse Practitioner Family; Referring Provider Nurse Practitioner Family; Visit Provider Podiatrist | DX: Z51.89 Encounter for other specified aftercare (principal); L97.522 Non-pressure chronic ulcer of other part of left foot with fat layer exposed; I70.203 Unspecified atherosclerosis of native arteries of extremities, bilateral legs; G62.9 Polyneuropathy, unspecified; L03.116 Cellulitis of left lower limb; I87.2 Venous insufficiency (chronic) (peripheral); I89.0 Lymphedema, not elsewhere classified; L84 Corns and callosities; B07.0 Plantar wart; Z91.199 Patient's noncompliance with other medical treatment and regimen due to unspecified reason | CPT/HCPCS: 11042 ==